=== PATIENT | female | born 1950 | race Caucasian/White ===

== ENCOUNTER 2021-03-15 14:13 | Outpatient (CLI) | payer MEDICARE ==
[~2021-03-15 14:13] MED LIST: Iopamidol 370 76% 100 ML VIAL ONE
[2021-03-15 14:55] LABS: Estimated GFR-MDRD - POC Greater than 90
== END 2021-03-15 14:14 | disposition home or self-care (01) ==
LOC: BICCT 14:13
PROVIDERS: ATTEND Internal Medicine Cardiovascular Disease
DX: I65.29 Occlusion and stenosis of unspecified carotid artery (principal); I70.8 Atherosclerosis of other arteries
CPT/HCPCS: 70498; 82565

== ENCOUNTER 2021-10-06 06:02 | Inpatient (IN) | payer MEDICARE ==
[2021-10-01 22:51] LABS: SARS-CoV-2 PCR by NAA Not Detected (NotDetected)
[2021-10-06] MEDS ORDERED: Bupivacaine PF 0.5% 30 ML VIAL ONE (07:51)
[2021-10-06] MEDS ORDERED: EPINEPHrine 1 MG/ML AMP ONE (07:51)
[2021-10-06] MEDS ORDERED: Dexamethasone 4 mg/ml Vial ONE (07:51)
[2021-10-06] MEDS ORDERED: ceFAZolin (BATCH) 2 GM/100 ML BAG ONE (08:42)
[2021-10-06] MEDS ORDERED: Midazolam HCl 2 mg/2 ml Vial ONE (09:25)
[2021-10-06] MEDS ORDERED: Fentanyl 250 MCG/5 ML VIAL ONE (09:37)
[2021-10-06] MEDS ORDERED: HYDROmorphone 2 MG/ML VIAL ONE (09:38)
[2021-10-06] MEDS ORDERED: PROPOFOL 200 MG/20 ML VIAL ONE (09:47)
[2021-10-06] MEDS ORDERED: Glycopyrrolate 0.2 MG/ML 5 ML SYRINGE ONE (09:47)
[2021-10-06] MEDS ORDERED: Dexamethasone 20 MG/5 ML VIAL ONE (09:47)
[2021-10-06] MEDS ORDERED: PHENYLEPHRINE-NS 100 MCG/ML 10 ML SYRINGE ONE (09:47)
[2021-10-06] MEDS ORDERED: Lidocaine 2% Jelly 5 ML TUBE ONE (09:47)
[2021-10-06] MEDS ORDERED: Rocuronium Bromide 10 MG/ML (10ML VIAL) ONE (09:47)
[2021-10-06] MEDS ORDERED: HYDROmorphone 2 MG/ML VIAL SLOW IVP PRN (11:39)
[2021-10-06] MEDS ORDERED: diphenhydrAMINE 50 MG/ML VIAL IM PRN (11:39)
[2021-10-06] MEDS ORDERED: Ondansetron HCl/PF 4 MG/2 ML Vial IVP PRN (11:39)
[2021-10-06] MEDS ORDERED: diphenhydrAMINE 50 MG/ML VIAL IVP PRN (11:39)
[2021-10-06] MEDS ORDERED: Promethazine HCl 25 MG/ML VIAL IM PRN ×3 (11:39→14:55)
[2021-10-06] MEDS ORDERED: HYDROmorphone 10 mg/100 ml CADD IVPB PRN (11:39)
[2021-10-06] MEDS ORDERED: Ondansetron PF 4 MG/2 ML Vial IVP PRN ×2 (11:39→14:55)
[2021-10-06] MEDS ORDERED: Zolpidem Tartrate 5 MG TAB PO PRN (11:39)
[2021-10-06] MEDS ORDERED: diphenhydrAMINE 25 MG CAP PO PRN (11:39)
[2021-10-06] MEDS ORDERED: Promethazine HCl 25 MG/ML VIAL IVPB PRN (11:39)
[2021-10-06] MEDS ORDERED: Naloxone HCl 0.4 mg/ml Vial IV PRN (11:39)
[2021-10-06] MEDS ORDERED: Communication Order-Pharmacy FS SCH (11:45)
[2021-10-06] MEDS ORDERED: HYDROmorphone 0.5 MG/0.5 ML SYRINGE ONE ×3 (11:56→15:22)
[2021-10-06] MEDS ORDERED: hydrALAZINE 20 MG/ML VIAL SLOW IVP PRN (14:55)
[2021-10-06] MEDS ORDERED: oxyCODONE/Acetaminophen 5 mg/325 mg Tablet PO PRN ×2 (15:18→15:20)
[2021-10-06 18:31] VITALS: BMI 24.7
[2021-10-06] MEDS: Mometasone/Formoterol 200/5 60 PUFF INH SCH (19:33)
[2021-10-06] MEDS: ceFAZolin (BATCH) 2 GM in Premix Bag 1 BAG IVPB SCH (20:05)
[2021-10-06] MEDS: Bupropion 100 MG SR TAB PO SCH (21:38)
[2021-10-07] MEDS: ceFAZolin (BATCH) 2 GM in Premix Bag 1 BAG IVPB SCH ×2 (01:54→09:24)
[2021-10-07 04:04] LABS: #Lymphocytes 1.6 thou/uL (1.20-3.40); #Monocytes 1.3 thou/uL (0.11-0.59); #Neutrophils 9.4 thou/uL (1.40-6.50); %Eosinophils 0.1 % (0.0-10.0); %Monocytes 10.7 % (0.0-10.0); %Neutrophils 76.1 % (42.0-75.0); Hemoglobin 12.7 g/dL (12.0-16.0); Mean Corpuscular HGB CONC 32.6 g/dL (32.0-36.0); Mean Corpuscular Hemoglobin 32.9 pg (27.0-31.0); Platelet Count 264 thou/uL (130-400); Red Blood Cell (RBC) Count 3.85 mill/uL (4.20-5.40); White Blood Cell (WBC) Count 12.4 thou/uL (4.8-10.8)
[2021-10-07 04:22] LABS: Anion Gap 11 mmol/L (10-20); BUN (Urea Nitrogen) 12 mg/dL (9.8-20.1); Calc. Creatinine Clearance 76 mL/min (70-130); Calcium 8.7 mg/dL (7.8-10.44); Carbon Dioxide 26 mmol/L (23-31); Chloride 106 mmol/L (98-107); Glucose 131 mg/dL (83-110); Potassium 4.4 mmol/L (3.5-5.1); Sodium 139 mmol/L (136-145)
[2021-10-07] MEDS: Mometasone/Formoterol 200/5 60 PUFF INH SCH ×2 (08:13→18:18)
[2021-10-07] MEDS: Multivit, Therapeutic 1 TAB PO SCH (08:54)
[2021-10-07] MEDS: Potassium Chloride 20 MEQ TAB PO SCH (08:54)
[2021-10-07] MEDS: Fish Oil 1,000 MG CAP PO SCH (08:54)
[2021-10-07] MEDS: Aspirin 81 mg Enteric Coated Tablet PO SCH (08:54)
[2021-10-07] MEDS: Montelukast Sodium 10 mg Tablet PO SCH (08:54)
[2021-10-07] MEDS: Atorvastatin Calcium 40 MG TAB PO SCH (08:55)
[2021-10-07] MEDS: Losartan 25 MG TAB PO SCH (08:55)
[2021-10-07] MEDS: Bupropion 100 MG SR TAB PO SCH ×2 (09:36→20:20)
[2021-10-07] MEDS: Acetaminophen 325 MG TAB PO PRN (17:54)
[2021-10-08] MEDS: Mometasone/Formoterol 200/5 60 PUFF INH SCH ×2 (07:30→19:14)
[2021-10-08] MEDS ORDERED: Non-Formulary Item 1 EACH (Tiotropium [Spiriva Handihaler] 18 MCG Box) INH SCH (09:00)
[2021-10-08] MEDS ORDERED: Non-Formulary Item 1 EACH (Fluticasone/Salmeterol [Wixela 250-50 Inhub] 1 EACH Blst.W.Dev INH SCH (09:00)
[2021-10-08] MEDS ORDERED: Non-Formulary Item 1 EACH (Fluticasone/Umeclidin/Vilanter [Trelegy Ellipta 200-62.5-25] 1 INH SCH (09:00)
[2021-10-08] MEDS: Montelukast Sodium 10 mg Tablet PO SCH (09:34)
[2021-10-08] MEDS: Multivit, Therapeutic 1 TAB PO SCH (09:34)
[2021-10-08] MEDS: Potassium Chloride 20 MEQ TAB PO SCH (09:34)
[2021-10-08] MEDS: Furosemide 20 MG TAB PO SCH (09:34)
[2021-10-08] MEDS: Atorvastatin Calcium 40 MG TAB PO SCH (09:34)
[2021-10-08] MEDS: Losartan 25 MG TAB PO SCH (09:35)
[2021-10-08] MEDS: Clopidogrel Bisulfate 75 MG TAB PO SCH (09:35)
[2021-10-08] MEDS: Rivaroxaban 10 MG TAB PO SCH (09:35)
[2021-10-08] MEDS: Aspirin 81 mg Enteric Coated Tablet PO SCH (09:35)
[2021-10-08] MEDS: Fish Oil 1,000 MG CAP PO SCH (09:35)
[2021-10-08] MEDS: Bupropion 100 MG SR TAB PO SCH ×2 (09:36→21:04)
[2021-10-08] MEDS ORDERED: guaiFENesin ER 600 MG TAB PO SCH (11:30)
[2021-10-08] MEDS: guaiFENesin ER 600 MG TAB PO SCH (21:05)
[2021-10-09] MEDS: Mometasone/Formoterol 200/5 60 PUFF INH SCH ×2 (07:05→18:43)
[2021-10-09] MEDS: guaiFENesin ER 600 MG TAB PO SCH ×2 (10:21→20:44)
[2021-10-09] MEDS: Potassium Chloride 20 MEQ TAB PO SCH (10:21)
[2021-10-09] MEDS: Losartan 25 MG TAB PO SCH (10:22)
[2021-10-09] MEDS: Montelukast Sodium 10 mg Tablet PO SCH (10:22)
[2021-10-09] MEDS: Furosemide 20 MG TAB PO SCH (10:22)
[2021-10-09] MEDS: Clopidogrel Bisulfate 75 MG TAB PO SCH (10:22)
[2021-10-09] MEDS: Atorvastatin Calcium 40 MG TAB PO SCH (10:22)
[2021-10-09] MEDS: Multivit, Therapeutic 1 TAB PO SCH (10:23)
[2021-10-09] MEDS: Fish Oil 1,000 MG CAP PO SCH (10:23)
[2021-10-09] MEDS: Rivaroxaban 10 MG TAB PO SCH (10:23)
[2021-10-09] MEDS: Aspirin 81 mg Enteric Coated Tablet PO SCH (10:23)
[2021-10-09] MEDS: Bupropion 100 MG SR TAB PO SCH ×2 (10:30→21:52)
[2021-10-09] MEDS: Acetaminophen 325 MG TAB PO PRN (13:31)
[2021-10-10] MEDS: Mometasone/Formoterol 200/5 60 PUFF INH SCH ×2 (06:58→18:44)
[2021-10-10] MEDS ORDERED: Fentanyl 100 MCG/2 ML VIAL SLOW IVP PRN (08:33)
[2021-10-10] MEDS ORDERED: HYDROcodone/Acetaminophen 5/325 mg Tablet PO PRN (08:33)
[2021-10-10] MEDS: Fish Oil 1,000 MG CAP PO SCH (10:13)
[2021-10-10] MEDS: Bupropion 100 MG SR TAB PO SCH ×2 (10:13→21:20)
[2021-10-10] MEDS: Aspirin 81 mg Enteric Coated Tablet PO SCH (10:14)
[2021-10-10] MEDS: Atorvastatin Calcium 40 MG TAB PO SCH (10:14)
[2021-10-10] MEDS: Losartan 25 MG TAB PO SCH (10:14)
[2021-10-10] MEDS: Furosemide 20 MG TAB PO SCH (10:14)
[2021-10-10] MEDS: Rivaroxaban 10 MG TAB PO SCH (10:14)
[2021-10-10] MEDS: guaiFENesin ER 600 MG TAB PO SCH ×2 (10:14→21:20)
[2021-10-10] MEDS: Montelukast Sodium 10 mg Tablet PO SCH (10:15)
[2021-10-10] MEDS ORDERED: Budesonide 0.5 MG/2 ML NEB NEB SCH (10:15)
[2021-10-10] MEDS: Potassium Chloride 20 MEQ TAB PO SCH (10:15)
[2021-10-10] MEDS: Multivit, Therapeutic 1 TAB PO SCH (10:15)
[2021-10-10] MEDS: Clopidogrel Bisulfate 75 MG TAB PO SCH (10:15)
[2021-10-10] MEDS ORDERED: Polyethylene Glycol 3350 17 GM Packet PO PRN (10:37)
[2021-10-10] MEDS: HYDROcodone/Acetaminophen 5/325 mg Tablet PO PRN ×2 (15:03→21:25)
[2021-10-10] MEDS: Fentanyl 100 MCG/2 ML VIAL SLOW IVP PRN (18:08)
[2021-10-10] MEDS: Budesonide 0.5 MG/2 ML NEB NEB SCH (18:28)
[2021-10-11] MEDS: Fentanyl 100 MCG/2 ML VIAL SLOW IVP PRN (00:20)
[2021-10-11] MEDS: Mometasone/Formoterol 200/5 60 PUFF INH SCH ×2 (07:19→18:28)
[2021-10-11] MEDS: Budesonide 0.5 MG/2 ML NEB NEB SCH ×2 (07:21→18:27)
[2021-10-11] MEDS: guaiFENesin ER 600 MG TAB PO SCH ×2 (08:32→20:17)
[2021-10-11] MEDS: Fish Oil 1,000 MG CAP PO SCH (08:32)
[2021-10-11] MEDS: Aspirin 81 mg Enteric Coated Tablet PO SCH (08:32)
[2021-10-11] MEDS: Atorvastatin Calcium 40 MG TAB PO SCH (08:32)
[2021-10-11] MEDS: Multivit, Therapeutic 1 TAB PO SCH (08:32)
[2021-10-11] MEDS: Potassium Chloride 20 MEQ TAB PO SCH (08:32)
[2021-10-11] MEDS: Montelukast Sodium 10 mg Tablet PO SCH (08:33)
[2021-10-11] MEDS: HYDROcodone/Acetaminophen 5/325 mg Tablet PO PRN ×4 (08:33→21:06)
[2021-10-11] MEDS: Losartan 25 MG TAB PO SCH (08:33)
[2021-10-11] MEDS: Clopidogrel Bisulfate 75 MG TAB PO SCH (08:34)
[2021-10-11] MEDS: Furosemide 20 MG TAB PO SCH (08:34)
[2021-10-11] MEDS: Rivaroxaban 10 MG TAB PO SCH (08:34)
[2021-10-11] MEDS: Bupropion 100 MG SR TAB PO SCH ×2 (10:19→20:17)
[2021-10-11] MEDS ORDERED: Oxymetazoline HCl 0.05% (30 ML BOT) NS SCH (18:30)
[2021-10-11] MEDS ORDERED: Bisacodyl 5 MG TAB PO PRN (20:06)
[2021-10-11] MEDS ORDERED: Polyethylene Glycol 3350 17 GM Packet PO SCH (20:15)
[2021-10-12] MEDS: Fentanyl 100 MCG/2 ML VIAL SLOW IVP PRN
[2021-10-12] MEDS: HYDROcodone/Acetaminophen 5/325 mg Tablet PO PRN ×5 (02:15→20:03)
[2021-10-12] MEDS: Mometasone/Formoterol 200/5 60 PUFF INH SCH ×2 (06:59→19:07)
[2021-10-12] MEDS: Budesonide 0.5 MG/2 ML NEB NEB SCH ×2 (07:00→18:58)
[2021-10-12] MEDS: Polyethylene Glycol 3350 17 GM Packet PO SCH (11:22)
[2021-10-12] MEDS: Losartan 25 MG TAB PO SCH (11:22)
[2021-10-12] MEDS: guaiFENesin ER 600 MG TAB PO SCH ×2 (11:22→20:07)
[2021-10-12] MEDS: Fish Oil 1,000 MG CAP PO SCH (11:22)
[2021-10-12] MEDS: Potassium Chloride 20 MEQ TAB PO SCH (11:23)
[2021-10-12] MEDS: Multivit, Therapeutic 1 TAB PO SCH (11:23)
[2021-10-12] MEDS: Aspirin 81 mg Enteric Coated Tablet PO SCH (11:23)
[2021-10-12] MEDS: Furosemide 20 MG TAB PO SCH (11:23)
[2021-10-12] MEDS: Montelukast Sodium 10 mg Tablet PO SCH (11:23)
[2021-10-12] MEDS: Atorvastatin Calcium 40 MG TAB PO SCH (11:23)
[2021-10-12] MEDS: Bupropion 100 MG SR TAB PO SCH ×2 (11:25→20:07)
[2021-10-13] MEDS: HYDROcodone/Acetaminophen 5/325 mg Tablet PO PRN ×4 (00:09→13:07)
[2021-10-13] MEDS: Mometasone/Formoterol 200/5 60 PUFF INH SCH (07:09)
[2021-10-13] MEDS: Budesonide 0.5 MG/2 ML NEB NEB SCH (07:09)
[2021-10-13] MEDS: Montelukast Sodium 10 mg Tablet PO SCH (08:36)
[2021-10-13] MEDS: Multivit, Therapeutic 1 TAB PO SCH (08:36)
[2021-10-13] MEDS: Potassium Chloride 20 MEQ TAB PO SCH (08:37)
[2021-10-13] MEDS: Furosemide 20 MG TAB PO SCH (08:37)
[2021-10-13] MEDS: Aspirin 81 mg Enteric Coated Tablet PO SCH (08:37)
[2021-10-13] MEDS: guaiFENesin ER 600 MG TAB PO SCH (08:37)
[2021-10-13] MEDS: Fish Oil 1,000 MG CAP PO SCH (08:37)
[2021-10-13] MEDS: Bupropion 100 MG SR TAB PO SCH (08:38)
[2021-10-13] MEDS: Atorvastatin Calcium 40 MG TAB PO SCH (08:38)
[2021-10-13] MEDS: Losartan 25 MG TAB PO SCH (08:41)
[2021-10-13] MEDS: Polyethylene Glycol 3350 17 GM Packet PO SCH (08:42)
[2021-10-13 12:18] VITALS: BP 98/55; TEMP 97.8
== END 2021-10-13 15:05 | disposition home or self-care (01) | DRG 165 ==
LOC: SDC 06:02 → MERGE 09:15 → CCU 11:30 → 2NO 10-08 19:12
PROVIDERS: ADMIT Thoracic Surgery (Cardiothoracic Vascular Surgery); ATTEND Thoracic Surgery (Cardiothoracic Vascular Surgery)
PROC: 0BBD0ZZ Excision of Right Middle Lung Lobe, Open Approach (ICD-10-PCS; principal; 2021-10-06)
DX: C34.2 Malignant neoplasm of middle lobe, bronchus or lung (principal); Z20.822 Contact with and (suspected) exposure to COVID-19; E03.9 Hypothyroidism, unspecified; M19.90 Unspecified osteoarthritis, unspecified site; J44.9 Chronic obstructive pulmonary disease, unspecified; I73.9 Peripheral vascular disease, unspecified; F17.290 Nicotine dependence, other tobacco product, uncomplicated; I65.23 Occlusion and stenosis of bilateral carotid arteries; R04.0 Epistaxis; Z85.038 Personal history of other malignant neoplasm of large intestine; Z95.5 Presence of coronary angioplasty implant and graft; Z83.3 Family history of diabetes mellitus; Z80.9 Family history of malignant neoplasm, unspecified; Z79.01 Long term (current) use of anticoagulants; Z79.899 Other long term (current) drug therapy; Z79.890 Hormone replacement therapy; Z79.82 Long term (current) use of aspirin; Z79.51 Long term (current) use of inhaled steroids
CPT/HCPCS: 36415; 71045; 80048; 85025; 86850; 86900; 86901; 88307; 88341; 88342; 94640; C1776; C1889; J0171; J0690; J1100; J1170; J2250; J2704; J3010; J7620; J7626; S0020; U0003; U0005

== ENCOUNTER 2021-11-03 12:09 | Outpatient (CLI) | payer MEDICARE | END 2021-11-03 12:10 | disposition home or self-care (01) | LOC: RAD 12:09 | PROVIDERS: ATTEND Thoracic Surgery (Cardiothoracic Vascular Surgery) | DX: J44.9 Chronic obstructive pulmonary disease, unspecified (principal); R91.8 Other nonspecific abnormal finding of lung field; J90 Pleural effusion, not elsewhere classified | CPT/HCPCS: 71046 ==

== ENCOUNTER 2021-12-29 13:18 | Outpatient (CLI) | payer MEDICARE | END 2021-12-29 13:19 | disposition home or self-care (01) | LOC: MRI 13:18 | PROVIDERS: ATTEND Family Medicine | DX: M47.26 Other spondylosis with radiculopathy, lumbar region (principal); M47.815 Spondylosis without myelopathy or radiculopathy, thoracolumbar region; M47.814 Spondylosis without myelopathy or radiculopathy, thoracic region; M47.817 Spondylosis without myelopathy or radiculopathy, lumbosacral region | CPT/HCPCS: 72148 ==

== ENCOUNTER 2022-01-28 12:23 | Inpatient (IN) | payer OTHER, MEDICARE ==
[2022-01-28 13:07] LABS: #Lymphocytes 2.8 thou/uL (1.20-3.40); #Monocytes 0.7 thou/uL (0.11-0.59); #Neutrophils 7.4 thou/uL (1.40-6.50); %Basophils 0.3 % (0.0-1.0); %Eosinophils 0.4 % (0.0-10.0); %Lymphocytes 25.3 % (21.0-51.0); %Monocytes 6.8 % (0.0-10.0); %Neutrophils 67.2 % (42.0-75.0); Hemoglobin 12.4 g/dL (12.0-16.0); Mean Corpuscular HGB CONC 33.4 g/dL (32.0-36.0); Mean Corpuscular Hemoglobin 30.5 pg (27.0-31.0); Mean Corpuscular Volume 91.3 fL (78.0-98.0); Mean Platelet Volume 7.3 fL (7.4-10.4); Platelet Count 262 thou/uL (130-400); RBC Distribution Width 13.7 % (11.5-14.5); Red Blood Cell (RBC) Count 4.07 mill/uL (4.20-5.40)
[2022-01-28 13:23] LABS: PTT 31.5 sec (22.9-36.1); Prothrombin Time 12.9 sec (12.0-14.7)
[2022-01-28 13:31] LABS: ALT (SGPT) 24 U/L (8-55); AST (SGOT) 26 U/L (5-34); Albumin 3.9 g/dL (3.4-4.8); Alkaline Phosphatase 80 U/L (40-110); Anion Gap 13 mmol/L (10-20); BUN (Urea Nitrogen) 12 mg/dL (9.8-20.1); Bilirubin, Total 0.5 mg/dL (0.2-1.2); CK (CPK) 191 U/L (29-168); Calc. Creatinine Clearance 0 mL/min (70-130); Calcium 8.9 mg/dL (7.8-10.44); Carbon Dioxide 25 mmol/L (23-31); Chloride 105 mmol/L (98-107); Estimated GFR 93; Globulin 2.6 g/dL (2.4-3.5); Glucose 89 mg/dL (83-110); Potassium 3.7 mmol/L (3.5-5.1); Protein, Total 6.5 g/dL (5.8-8.1); Sodium 139 mmol/L (136-145)
[2022-01-28] MEDS ORDERED: Lidocaine 1% MPF 2 ML VIAL ONE (15:04)
[2022-01-28] MEDS ORDERED: Boostrix 0.5 ML (Tdap) VIAL ONE (15:05)
[2022-01-28] MEDS ORDERED: Iopamidol-370 76% 500 ML 1 ML ONE (15:10)
[2022-01-28] MEDS ORDERED: Fentanyl 100 MCG/2 ML VIAL ONE ×2 (15:43→16:31)
[2022-01-28] MEDS ORDERED: hydrALAZINE 20 MG/ML VIAL SLOW IVP PRN (15:45)
[2022-01-28] MEDS ORDERED: Dextrose 5% in Water 1,000 ML IV PRN (15:45)
[2022-01-28] MEDS ORDERED: Ondansetron PF 4 MG/2 ML Vial IVP PRN (15:45)
[2022-01-28] MEDS ORDERED: Dextrose 50% Abboject 50 ML SYRINGE SLOW IVP PRN (15:45)
[2022-01-28] MEDS ORDERED: HUMAN PROTHROMBIN COMPLX IV SCH (16:00)
[2022-01-28] MEDS ORDERED: [UNRECOGNIZED DRUG - OTHER] IV SCH (16:00)
[2022-01-28] MEDS ORDERED: HUM PROTHROMBIN CPLX IV SCH (16:00)
[2022-01-28] MEDS ORDERED: CEFAZOLIN 1 GM VIAL ONE (16:31)
[2022-01-28 18:22] LABS: Hemoglobin 11.5 g/dL (12.0-16.0); Platelet Count 211 thou/uL (130-400)
[2022-01-28] MEDS ORDERED: Famotidine/PF 20 mg/2ml Vial SLOW IVP SCH (21:00)
[2022-01-28] MEDS: Dexamethasone 4 mg/ml Vial SLOW IVP SCH (21:02)
[2022-01-28] MEDS: Senokot S 8.6-50 MG TAB PO SCH (21:03)
[2022-01-28] MEDS: Fentanyl 100 MCG/2 ML VIAL SLOW IVP PRN ×2 (21:03→23:32)
[2022-01-28] MEDS: Acetaminophen 500 MG TAB PO SCH ×2 (21:42→23:31)
[2022-01-28] MEDS ORDERED: Albuterol 200 PUFF (6.7GM INHALER) INH PRN (21:53)
[2022-01-28 22:15] VITALS: BMI 23.6
[2022-01-29 03:39] LABS: #Lymphocytes 1.3 thou/uL (1.20-3.40); #Monocytes 0.1 thou/uL (0.11-0.59); %Eosinophils 0.1 % (0.0-10.0); %Lymphocytes 23.5 % (21.0-51.0); %Monocytes 2.6 % (0.0-10.0); %Neutrophils 73.8 % (42.0-75.0); Hemoglobin 12.4 g/dL (12.0-16.0); Mean Corpuscular HGB CONC 33.6 g/dL (32.0-36.0); Mean Corpuscular Hemoglobin 31.1 pg (27.0-31.0); Mean Corpuscular Volume 92.4 fL (78.0-98.0); Mean Platelet Volume 7.6 fL (7.4-10.4); Platelet Count 210 thou/uL (130-400); RBC Distribution Width 13.9 % (11.5-14.5); White Blood Cell (WBC) Count 5.4 thou/uL (4.8-10.8)
[2022-01-29 03:58] LABS: Anion Gap 12 mmol/L (10-20); BUN (Urea Nitrogen) 9 mg/dL (9.8-20.1); Calc. Creatinine Clearance 76 mL/min (70-130); Calcium 8.7 mg/dL (7.8-10.44); Carbon Dioxide 21 mmol/L (23-31); Chloride 109 mmol/L (98-107); Estimated GFR 93; Glucose 144 mg/dL (83-110); Magnesium 1.6 mg/dL (1.6-2.6); Phosphorus 3.5 mg/dL (2.3-4.7); Potassium 4.4 mmol/L (3.5-5.1); Sodium 138 mmol/L (136-145)
[2022-01-29] MEDS: Dexamethasone 4 mg/ml Vial SLOW IVP SCH ×2 (05:02→11:53)
[2022-01-29] MEDS: Acetaminophen 500 MG TAB PO SCH (05:02)
[2022-01-29] MEDS: Mometasone 200 MCG/Formoterol 5 MCG 120 PUFF INHALER INH SCH ×2 (07:37→19:07)
[2022-01-29] MEDS: Venlafaxine XR 37.5 MG CAP PO SCH (08:33)
[2022-01-29] MEDS: Atorvastatin Calcium 40 MG TAB PO SCH (08:33)
[2022-01-29] MEDS: Senokot S 8.6-50 MG TAB PO SCH ×2 (08:33→20:53)
[2022-01-29] MEDS: Polyethylene Glycol 3350 17 GM Packet PO SCH (08:34)
[2022-01-29] MEDS: Bupropion 100 MG SR TAB PO SCH (08:34)
[2022-01-29] MEDS ORDERED: Non-Formulary Item 1 EACH (Tiotropium [Spiriva Handihaler] 18 MCG Box) INH SCH (09:00)
[2022-01-29] MEDS ORDERED: Losartan 25 MG TAB PO SCH (09:45)
[2022-01-29] MEDS: Acetaminophen 325 MG TAB PO SCH ×3 (11:53→23:49)
[2022-01-29] MEDS: Fentanyl 100 MCG/2 ML VIAL SLOW IVP PRN (18:20)
[2022-01-29] MEDS: traZODone HCl 50 MG TAB PO SCH (20:51)
[2022-01-29] MEDS: hydrOXYzine 25 MG TAB PO SCH (20:52)
[2022-01-30] MEDS: Acetaminophen/Codeine 30-300mg Tablet PO PRN ×3 (03:06→20:46)
[2022-01-30] MEDS: Acetaminophen 325 MG TAB PO SCH ×3 (05:32→16:56)
[2022-01-30] MEDS: Mometasone 200 MCG/Formoterol 5 MCG 120 PUFF INHALER INH SCH ×2 (07:05→19:46)
[2022-01-30] MEDS ORDERED: Magnesium Sulfate 3 GM in Sodium Chloride 0.9% 100 ML IVPB SCH (08:00)
[2022-01-30] MEDS ORDERED: Losartan 25 MG TAB PO SCH (09:00)
[2022-01-30] MEDS ORDERED: Magnesium 2 GM/50 ML(in water) 3 GM in Premix Bag 1 BAG IVPB SCH (09:00)
[2022-01-30] MEDS: Venlafaxine XR 37.5 MG CAP PO SCH (09:11)
[2022-01-30] MEDS: Atorvastatin Calcium 40 MG TAB PO SCH (09:13)
[2022-01-30] MEDS: Senokot S 8.6-50 MG TAB PO SCH ×2 (09:14→20:41)
[2022-01-30] MEDS: Bupropion 100 MG SR TAB PO SCH (09:14)
[2022-01-30] MEDS: Polyethylene Glycol 3350 17 GM Packet PO SCH (09:15)
[2022-01-30] MEDS: Aspirin 81 mg Enteric Coated Tablet PO SCH (09:15)
[2022-01-30 11:28] LABS: #Lymphocytes 3.2 thou/uL (1.20-3.40); #Monocytes 0.8 thou/uL (0.11-0.59); #Neutrophils 6.1 thou/uL (1.40-6.50); %Basophils 0.1 % (0.0-1.0); %Eosinophils 0.3 % (0.0-10.0); %Lymphocytes 31.4 % (21.0-51.0); %Monocytes 7.5 % (0.0-10.0); %Neutrophils 60.6 % (42.0-75.0); Mean Corpuscular HGB CONC 33.5 g/dL (32.0-36.0); Mean Corpuscular Hemoglobin 31.6 pg (27.0-31.0); Mean Corpuscular Volume 94.2 fL (78.0-98.0); Mean Platelet Volume 7.9 fL (7.4-10.4); Platelet Count 202 thou/uL (130-400); Red Blood Cell (RBC) Count 3.79 mill/uL (4.20-5.40); White Blood Cell (WBC) Count 10.1 thou/uL (4.8-10.8)
[2022-01-30 11:51] LABS: Anion Gap 13 mmol/L (10-20); BUN (Urea Nitrogen) 11 mg/dL (9.8-20.1); Calc. Creatinine Clearance 90 mL/min (70-130); Calcium 8.4 mg/dL (7.8-10.44); Carbon Dioxide 19 mmol/L (23-31); Chloride 112 mmol/L (98-107); Estimated GFR 96; Glucose 99 mg/dL (83-110); Magnesium 2.3 mg/dL (1.6-2.6); Phosphorus 2.5 mg/dL (2.3-4.7); Potassium 3.6 mmol/L (3.5-5.1); Sodium 140 mmol/L (136-145)
[2022-01-30] MEDS ORDERED: Hydrocortisone Sod Succ/PF 100 mg/2 ml Vial IVP SCH ×3 (13:30→22:00)
[2022-01-30] MEDS ORDERED: Lactated Ringer's 500 ML IV SCH ×2 (16:00→17:30)
[2022-01-30] MEDS ORDERED: Ketorolac Tromethamine 30 MG/ML VIAL IVP SCH (18:00)
[2022-01-30] MEDS: traZODone HCl 50 MG TAB PO SCH (20:38)
[2022-01-30] MEDS: hydrOXYzine 25 MG TAB PO SCH (20:38)
[2022-01-31] MEDS: Hydrocortisone Sod Succ/PF 100 mg/2 ml Vial IVP SCH ×3 (00:37→13:05)
[2022-01-31] MEDS: Acetaminophen 325 MG TAB PO SCH ×4 (00:38→17:36)
[2022-01-31] MEDS: Mometasone 200 MCG/Formoterol 5 MCG 120 PUFF INHALER INH SCH ×2 (06:32→19:16)
[2022-01-31 07:25] LABS: #Lymphocytes 1.7 thou/uL (1.20-3.40); #Monocytes 0.5 thou/uL (0.11-0.59); #Neutrophils 7.4 thou/uL (1.40-6.50); %Basophils 0.4 % (0.0-1.0); %Eosinophils 0.1 % (0.0-10.0); %Lymphocytes 17.9 % (21.0-51.0); %Monocytes 5.3 % (0.0-10.0); %Neutrophils 76.4 % (42.0-75.0); Hemoglobin 11.4 g/dL (12.0-16.0); Mean Corpuscular HGB CONC 32.8 g/dL (32.0-36.0); Mean Corpuscular Hemoglobin 30.9 pg (27.0-31.0); Mean Corpuscular Volume 94.1 fL (78.0-98.0); Platelet Count 216 thou/uL (130-400); Red Blood Cell (RBC) Count 3.69 mill/uL (4.20-5.40); White Blood Cell (WBC) Count 9.7 thou/uL (4.8-10.8)
[2022-01-31 07:42] LABS: Anion Gap 12 mmol/L (10-20); BUN (Urea Nitrogen) 12 mg/dL (9.8-20.1); Calc. Creatinine Clearance 98 mL/min (70-130); Carbon Dioxide 22 mmol/L (23-31); Chloride 112 mmol/L (98-107); Estimated GFR 96; Glucose 144 mg/dL (83-110); Magnesium 1.6 mg/dL (1.6-2.6); Phosphorus 2.9 mg/dL (2.3-4.7); Potassium 3.8 mmol/L (3.5-5.1); Sodium 142 mmol/L (136-145)
[2022-01-31] MEDS: Venlafaxine XR 37.5 MG CAP PO SCH (08:44)
[2022-01-31] MEDS: Atorvastatin Calcium 40 MG TAB PO SCH (08:44)
[2022-01-31] MEDS: Bupropion 100 MG SR TAB PO SCH (08:44)
[2022-01-31] MEDS: Aspirin 81 mg Enteric Coated Tablet PO SCH (08:44)
[2022-01-31] MEDS: Polyethylene Glycol 3350 17 GM Packet PO SCH (08:45)
[2022-01-31] MEDS: Losartan 25 MG TAB PO SCH (08:45)
[2022-01-31] MEDS: Senokot S 8.6-50 MG TAB PO SCH ×2 (08:45→20:23)
[2022-01-31] MEDS: Acetaminophen/Codeine 30-300mg Tablet PO PRN (20:22)
[2022-01-31] MEDS: hydrOXYzine 25 MG TAB PO SCH (20:22)
[2022-02-01] MEDS: Acetaminophen 325 MG TAB PO SCH ×5 (00:14→23:21)
[2022-02-01] MEDS: Acetaminophen/Codeine 30-300mg Tablet PO PRN ×4 (00:19→23:26)
[2022-02-01] MEDS: Mometasone 200 MCG/Formoterol 5 MCG 120 PUFF INHALER INH SCH ×2 (07:16→18:34)
[2022-02-01] MEDS: Senokot S 8.6-50 MG TAB PO SCH ×2 (08:11→19:48)
[2022-02-01] MEDS: Venlafaxine XR 37.5 MG CAP PO SCH (08:11)
[2022-02-01] MEDS: Losartan 25 MG TAB PO SCH (08:12)
[2022-02-01] MEDS: Aspirin 81 mg Enteric Coated Tablet PO SCH (08:12)
[2022-02-01] MEDS: Bupropion 100 MG SR TAB PO SCH (08:12)
[2022-02-01] MEDS: Polyethylene Glycol 3350 17 GM Packet PO SCH (08:13)
[2022-02-01] MEDS: Atorvastatin Calcium 40 MG TAB PO SCH (08:15)
[2022-02-01] MEDS ORDERED: Nitroglycerin 0.4 MG TAB (25 Tab Bottle) ONE (10:52)
[2022-02-01] MEDS ORDERED: Sodium Chloride 0.9% 500 ML IV SCH (13:45)
[2022-02-01] MEDS: hydrOXYzine 25 MG TAB PO SCH (19:48)
[2022-02-02] MEDS: Acetaminophen 325 MG TAB PO SCH ×3 (06:03→18:12)
[2022-02-02] MEDS: Acetaminophen/Codeine 30-300mg Tablet PO PRN (06:03)
[2022-02-02] MEDS: Mometasone 200 MCG/Formoterol 5 MCG 120 PUFF INHALER INH SCH ×2 (07:41→18:29)
[2022-02-02] MEDS: Venlafaxine XR 37.5 MG CAP PO SCH (09:17)
[2022-02-02] MEDS: Aspirin 81 mg Enteric Coated Tablet PO SCH (09:17)
[2022-02-02] MEDS: Senokot S 8.6-50 MG TAB PO SCH ×2 (09:17→20:54)
[2022-02-02] MEDS: Atorvastatin Calcium 40 MG TAB PO SCH (09:17)
[2022-02-02] MEDS: Polyethylene Glycol 3350 17 GM Packet PO SCH (09:17)
[2022-02-02] MEDS: Bupropion 100 MG SR TAB PO SCH (09:17)
[2022-02-02] MEDS ORDERED: Bisacodyl 10 MG SUPP PR PRN (10:25)
[2022-02-02] MEDS: hydrOXYzine 25 MG TAB PO SCH (20:48)
[2022-02-03] MEDS: Acetaminophen 325 MG TAB PO SCH ×3 (00:04→12:21)
[2022-02-03] MEDS: Acetaminophen/Codeine 30-300mg Tablet PO PRN ×2 (02:23→09:59)
[2022-02-03] MEDS: Mometasone 200 MCG/Formoterol 5 MCG 120 PUFF INHALER INH SCH (08:01)
[2022-02-03] MEDS: Venlafaxine XR 37.5 MG CAP PO SCH (09:51)
[2022-02-03] MEDS: Bupropion 100 MG SR TAB PO SCH (09:51)
[2022-02-03] MEDS: Aspirin 81 mg Enteric Coated Tablet PO SCH (09:51)
[2022-02-03] MEDS: Atorvastatin Calcium 40 MG TAB PO SCH (09:51)
[2022-02-03] MEDS: Senokot S 8.6-50 MG TAB PO SCH (09:52)
[2022-02-03] MEDS: Polyethylene Glycol 3350 17 GM Packet PO SCH (09:52)
[2022-02-03 12:54] VITALS: BP 96/61; TEMP 98.2
== END 2022-02-03 14:40 | disposition home health service (06) | DRG 605 ==
LOC: ERS 12:23 → IMCU/EMU 15:45 → SURG A 01-29 14:12
PROVIDERS: ADMIT Student in an Organized Health Care Education/Training Program; ATTEND Surgery
PROC: 0JQK3ZZ Repair Left Hand Subcutaneous Tissue and Fascia, Percutaneous Approach (ICD-10-PCS; principal; 2022-01-28)
PROC: 30233N1 Transfusion of Nonautologous Red Blood Cells into Peripheral Vein, Percutaneous Approach (ICD-10-PCS; 2022-01-28)
DX: S01.01XA Laceration without foreign body of scalp, initial encounter (principal); D62 Acute posthemorrhagic anemia; E27.40 Unspecified adrenocortical insufficiency; S00.03XA Contusion of scalp, initial encounter; Z20.822 Contact with and (suspected) exposure to COVID-19; E78.5 Hyperlipidemia, unspecified; I10 Essential (primary) hypertension; J44.9 Chronic obstructive pulmonary disease, unspecified; F41.9 Anxiety disorder, unspecified; F32.A Depression, unspecified; F17.210 Nicotine dependence, cigarettes, uncomplicated; E03.9 Hypothyroidism, unspecified; I25.10 Atherosclerotic heart disease of native coronary artery without angina pectoris; H05.221 Edema of right orbit; S61.215A Laceration without foreign body of left ring finger without damage to nail, initial encounter; W01.0XXA Fall on same level from slipping, tripping and stumbling without subsequent striking against object, initial encounter; E11.51 Type 2 diabetes mellitus with diabetic peripheral angiopathy without gangrene; Z95.5 Presence of coronary angioplasty implant and graft; Z90.49 Acquired absence of other specified parts of digestive tract; I25.2 Old myocardial infarction; Z98.890 Other specified postprocedural states; Z79.01 Long term (current) use of anticoagulants; Z85.038 Personal history of other malignant neoplasm of large intestine; Z85.118 Personal history of other malignant neoplasm of bronchus and lung; Z79.82 Long term (current) use of aspirin; Z79.899 Other long term (current) drug therapy
CPT/HCPCS: 12001; 36415; 36416; 36430; 70450; 70486; 71260; 72125; 74177; 80048; 80053; 82533; 82550; 83735; 84100; 84484; 85025; 85610; 85730; 86850; 86900; 86901; 90471; 90715; 93005; 93010; 93306; 94640; 94664; 96361; 96365; 96375; 96376; G0390; J0690; J1100; J1720; J1885; J3010; J3475; J3490; J7030; J7120; J7168; J7620; P9016; Q9967; S0028; U0003; U0005

== ENCOUNTER 2022-03-01 13:58 | Outpatient (CLI) | payer MEDICARE | END 2022-03-01 13:59 | disposition home or self-care (01) | LOC: RAD 13:58 | PROVIDERS: ATTEND Thoracic Surgery (Cardiothoracic Vascular Surgery) | DX: J44.9 Chronic obstructive pulmonary disease, unspecified (principal); R91.8 Other nonspecific abnormal finding of lung field | CPT/HCPCS: 71046 ==

== ENCOUNTER 2022-03-14 19:21 | Inpatient (IN) | payer MEDICARE ==
[2022-03-14] MEDS ORDERED: Naloxone HCl 0.4 mg/ml Vial ONE (19:53)
[2022-03-14] MEDS ORDERED: Cefepime 2 GM VIAL ONE (19:55)
[2022-03-14] MEDS ORDERED: Rocuronium Bromide 10 MG/ML (10ML VIAL) ONE (19:57)
[2022-03-14] MEDS ORDERED: Propofol 1,000 MG/100 ML VIAL IV ONE (20:09)
[2022-03-14] MEDS ORDERED: Fentanyl CADD 100 ML IV SCH (20:15)
[2022-03-14 20:21] LABS: #Lymphocytes 1.2 thou/uL (1.20-3.40); #Monocytes 1.3 thou/uL (0.11-0.59); #Neutrophils 12.3 thou/uL (1.40-6.50); %Basophils 0.1 % (0.0-1.0); %Eosinophils 0.2 % (0.0-10.0); %Lymphocytes 8.2 % (21.0-51.0); %Monocytes 8.4 % (0.0-10.0); %Neutrophils 83.1 % (42.0-75.0); Mean Corpuscular HGB CONC 32.4 g/dL (32.0-36.0); Mean Corpuscular Hemoglobin 31.1 pg (27.0-31.0); Mean Corpuscular Volume 95.8 fL (78.0-98.0); Mean Platelet Volume 8.8 fL (7.4-10.4); Platelet Count 307 thou/uL (130-400); RBC Distribution Width 14.1 % (11.5-14.5); Red Blood Cell (RBC) Count 4.51 mill/uL (4.20-5.40); White Blood Cell (WBC) Count 14.8 thou/uL (4.8-10.8)
[2022-03-14 20:30] LABS: Actual Bicarbonate (HCO3a) 20.3 mEq/L (22-28); Analyzer IN Cardio ER; Base Excess (BEa) -1.5 mEq/L (-2.0 to +3.0); Calcium, Ionized (arterial) 1.09 mmol/L (1.12-1.30); Hemoglobin (Hb) 13.4 g/dL (12.0-16.0); O2 Tension (PaO2), arterial 260.6 mmHg (> 70.0)
[2022-03-14 20:37] LABS: Puncture Site LRA
[2022-03-14 20:43] LABS: Anion Gap 19 mmol/L (10-20); BUN (Urea Nitrogen) 20 mg/dL (9.8-20.1); Calc. Creatinine Clearance 0 mL/min (70-130); Carbon Dioxide 21 mmol/L (23-31); Chloride 103 mmol/L (98-107); Potassium 4.7 mmol/L (3.5-5.1); Sodium 138 mmol/L (136-145)
[2022-03-14 20:44] LABS: ALT (SGPT) 164 U/L (8-55); AST (SGOT) 275 U/L (5-34); Albumin 4.3 g/dL (3.4-4.8); Alkaline Phosphatase 107 U/L (40-110); Bilirubin, Total 0.8 mg/dL (0.2-1.2); Calcium 9.1 mg/dL (7.8-10.44); Estimated GFR 84; Globulin 3.4 g/dL (2.4-3.5); Glucose 131 mg/dL (83-110); Protein, Total 7.7 g/dL (5.8-8.1)
[2022-03-14 20:53] LABS: Acetaminophen Less than 10.0 mcg/mL (10.0-30.0); Alcohol Less than 10 mg/dL (Less than 10); Salicylate Less than 8.0 mg/dL (15.0-30.0)
[2022-03-14 20:59] LABS: Amphetamine Not Detected (NotDetected); Barbiturates Screen Not Detected (NotDetected); Benzodiazepine Screen Not Detected (NotDetected); Cocaine Metabolite Screen Not Detected (NotDetected); Methadone Not Detected (NotDetected); Methamphetamine Not Detected (NotDetected); Opiate Screen Detected (NotDetected); Oxycodone Screen Not Detected (NotDetected); Phencyclidine (PCP) Not Detected (NotDetected); THC/Cannabinoid Screen Not Detected (NotDetected); Tricyclic Screen Not Detected (NotDetected)
[2022-03-14] MEDS ORDERED: niCARdipine 25 MG/10 ML VIAL ONE (21:01)
[2022-03-14] MEDS ORDERED: Labetalol HCl 100 MG/20 ML VIAL ONE (21:02)
[2022-03-14] MEDS ORDERED: Furosemide 40 MG/4 ML VIAL ONE (21:04)
[2022-03-14] MEDS ORDERED: Mannitol 12.5 GM/50 ML SLOW IVP SCH (21:15)
[2022-03-14 21:26] LABS: CKMB 267.7 ng/mL (0-6.6)
[2022-03-14 21:27] LABS: INR-International Normal Ratio 1.1; PTT 32.8 sec (22.9-36.1); Prothrombin Time 14.1 sec (12.0-14.7)
[2022-03-14 21:29] LABS: SARS-CoV-2 NAA Rapid Test Not Detected (NotDetected)
[2022-03-14] MEDS ORDERED: NOREPINEPHRINE 8 MG/250 ML-D5W 250 ML ONE (21:35)
[2022-03-14] MEDS ORDERED: HUMAN PROTHROMBIN COMPLX IV SCH (21:45)
[2022-03-14] MEDS ORDERED: HUM PROTHROMBIN CPLX IV SCH (21:45)
[2022-03-14] MEDS ORDERED: ADMIXTURE FEE IV SCH (21:45)
[2022-03-14] MEDS ORDERED: [UNRECOGNIZED DRUG - OTHER] IV SCH (21:45)
[2022-03-14] MEDS ORDERED: Dextrose 5% in Water 1,000 ML IV PRN (22:23)
[2022-03-14] MEDS ORDERED: hydrALAZINE 20 MG/ML VIAL SLOW IVP PRN (22:23)
[2022-03-14] MEDS ORDERED: Dextrose 50% Abboject 50 ML SYRINGE SLOW IVP PRN (22:23)
[2022-03-14] MEDS ORDERED: TETANUS, DIPHTHERIA TOX,ADULT (TDVAX) 0.5 ML VIAL IM ONE (22:23)
[2022-03-14] MEDS ORDERED: Ventilator Sedation Protocol 1 EACH FS SCH (22:31)
[2022-03-14] MEDS ORDERED: Midazolam HCl 2 mg/2 ml Vial SLOW IVP PRN (22:34)
[2022-03-14] MEDS ORDERED: Morphine 4 MG/ML VIAL SLOW IVP PRN (22:45)
[2022-03-14] MEDS ORDERED: Fentanyl BOLUS 250 ML IVPB PRN (22:45)
[2022-03-14] MEDS ORDERED: Propofol BOLUS 1,000 MG/100 ML VIAL IV PRN (22:45)
[2022-03-14] MEDS ORDERED: NOREPINEPHRINE 8 MG/250 ML-D5W 250 ML IVPB SCH (22:45)
[2022-03-14] MEDS ORDERED: Propofol 1,000 MG/100 ML VIAL IV PRN (22:45)
[2022-03-14] MEDS ORDERED: Vancomycin 1 GM/200 ML BAG ONE (22:51)
[2022-03-14 23:09] LABS: Bacteria/HPF None Seen HPF (None Seen); Bilirubin Negative (Negative); Blood, Urine 3+ (Negative); Clarity Clear (Clear); Glucose, Urine (Dipstick) Normal (Negative); Ketone, Urine Trace mg/dL (Negative); Leukocyte Negative Leu/uL (Negative); Nitrite Negative (Negative); Protein, Urine (Dipstick) 200 mg/dL (Neg-Trace); RBC/HPF 0-3 HPF (0-3); Specific Gravity, Urine 1.022 (1.002-1.036); Squamous Epithelial None Seen HPF (0-3); Urobilinogen Normal mg/dL (Less than 2); pH, Urine 5.5 (5.0-9.0)
[2022-03-14 23:13] LABS: Lactic Acid 1.1 mmol/L (0.5-2.2)
[2022-03-14] MEDS ORDERED: Calcium Chloride 1 GM/10 ML Abboject SYRINGE IVP SCH (23:15)
[2022-03-15] MEDS: Sodium Chloride 0.9% 1,000 ML IV SCH ×3 (00:29→22:42)
[2022-03-15] MEDS ORDERED: Sodium Chloride 0.9% 500 ML IV SCH (01:45)
[2022-03-15 03:01] LABS: Troponin I 0.942 ng/mL (< 0.028)
[2022-03-15 04:38] LABS: #Lymphocytes 2.1 thou/uL (1.20-3.40); #Monocytes 1.1 thou/uL (0.11-0.59); #Neutrophils 9.2 thou/uL (1.40-6.50); %Basophils 0.4 % (0.0-1.0); %Eosinophils 0.1 % (0.0-10.0); %Lymphocytes 16.5 % (21.0-51.0); %Monocytes 8.8 % (0.0-10.0); %Neutrophils 74.3 % (42.0-75.0); Hemoglobin 11.6 g/dL (12.0-16.0); Mean Corpuscular HGB CONC 32.5 g/dL (32.0-36.0); Mean Corpuscular Hemoglobin 31.4 pg (27.0-31.0); Mean Corpuscular Volume 96.7 fL (78.0-98.0); Mean Platelet Volume 7.9 fL (7.4-10.4); Platelet Count 239 thou/uL (130-400); RBC Distribution Width 13.7 % (11.5-14.5); White Blood Cell (WBC) Count 12.4 thou/uL (4.8-10.8)
[2022-03-15 05:02] LABS: Anion Gap 13 mmol/L (10-20); BUN (Urea Nitrogen) 22 mg/dL (9.8-20.1); CK (CPK) 3165 U/L (29-168); Calc. Creatinine Clearance 76 mL/min (70-130); Calcium 9.1 mg/dL (7.8-10.44); Carbon Dioxide 23 mmol/L (23-31); Chloride 107 mmol/L (98-107); Estimated GFR 92; Glucose 115 mg/dL (83-110); Magnesium 1.5 mg/dL (1.6-2.6); Sodium 140 mmol/L (136-145)
[2022-03-15 05:05] LABS: Phosphorus 3.5 mg/dL (2.3-4.7)
[2022-03-15] MEDS ORDERED: Magnesium Sulfate In Water 4 GM in Premix Bag 1 BAG IVPB SCH (07:45)
[2022-03-15] MEDS ORDERED: Potassium Chloride 20 MEQ in Premix Bag 1 BAG IVPB SCH (07:45)
[2022-03-15] MEDS ORDERED: Sodium Chloride 0.9% (PF) 10 ML VIAL FS PRN (07:45)
[2022-03-15] MEDS: Pantoprazole 40 MG VIAL IVP SCH ×2 (07:54→22:43)
[2022-03-15 08:22] LABS: Actual Bicarbonate (HCO3a) 21.3 mEq/L (22-28); Base Excess (BEa) -1.2 mEq/L (-2.0 to +3.0); CO2 Tension 29.3 mmHg (35.0-45.0); Calcium, Ionized (arterial) 1.18 mmol/L (1.12-1.30); Carboxyhemoglobin (COHb) 0.8 gm% (0.0-3.0); Hemoglobin (Hb) 12.2 g/dL (12.0-16.0); O2 Tension (PaO2), arterial 132.2 mmHg (> 70.0); Potassium - ABG Lab 3.23 mmol/L (3.70-5.30); pH, Arterial 7.48 (7.35-7.45)
[2022-03-15 08:26] LABS: Puncture Site LRA
[2022-03-15 08:27] LABS: ALV-art Gradient 116.375 mmHg (0-20)
[2022-03-15] MEDS ORDERED: FLU VACC QS2022-23(65YR UP)/PF 240 MCG/0.7 ML SYRINGE IM ONE (09:00)
[2022-03-15] MEDS ORDERED: Famotidine/PF 20 mg/2ml Vial SLOW IVP SCH (09:00)
[2022-03-15] MEDS ORDERED: cefTRIAXone\\ROCEPHIN 2 GM in Sodium Chloride 0.9% 100 ML IVPB SCH (13:30)
[2022-03-15] MEDS ORDERED: Piperacillin/Tazobactam 3.375 GM in Sodium Chloride 0.9% 100 ML IVPB SCH ×2 (13:30→13:45)
[2022-03-15] MEDS: Acetaminophen 650 MG/20.3 ML UDCUP PO SCH ×2 (13:47→22:43)
[2022-03-15] MEDS ORDERED: CEFAZOLIN 2 GM in Sodium Chloride 0.9% 100 ML IVPB SCH (17:30)
[2022-03-15 17:46] LABS: INR-International Normal Ratio 1.1; Prothrombin Time 14.1 sec (12.0-14.7)
[2022-03-15 17:48] LABS: PTT 30.5 sec (22.9-36.1)
[2022-03-15] MEDS ORDERED: Thrombin 5000 UNITS/5 ML VIAL ONE (18:35)
[2022-03-15] MEDS ORDERED: EPINEPHrine 1 MG/ML AMP ONE ×2 (18:35→19:13)
[2022-03-15] MEDS ORDERED: Lidocaine 1% (PF) 30 ML VIAL ONE (18:35)
[2022-03-15] MEDS ORDERED: Neomycin-Polymyxin 1 ML AMP ONE ×3 (18:35→20:40)
[2022-03-15] MEDS ORDERED: Bacitracin Zinc Ointment 30 gm TUBE ONE (18:35)
[2022-03-15] MEDS ORDERED: fentaNYL Citrate/PF 100 MCG/2 ML SYRINGE ONE (18:47)
[2022-03-15] MEDS: Piperacillin/Tazobactam 3.375 GM in Sodium Chloride 0.9% 100 ML IVPB SCH (19:03)
[2022-03-15] MEDS ORDERED: PHENYLEPHRINE-NS 100 MCG/ML 10 ML SYRINGE ONE (19:31)
[2022-03-15] MEDS ORDERED: Dexamethasone 20 MG/5 ML VIAL ONE (19:31)
[2022-03-15] MEDS ORDERED: PROPOFOL 200 MG/20 ML VIAL ONE (19:31)
[2022-03-15] MEDS ORDERED: Vecuronium 10 MG VIAL ONE (19:31)
[2022-03-15] MEDS ORDERED: Rocuronium Bromide 10 MG/ML (10ML VIAL) ONE (19:31)
[2022-03-15] MEDS ORDERED: Ondansetron PF 4 MG/2 ML Vial ONE (19:31)
[2022-03-15] MEDS ORDERED: Lidocaine 1% PF 5 ML VIAL ONE (19:31)
[2022-03-15] MEDS ORDERED: Phenylephrine 10 MG/ML VIAL ONE ×2 (19:39→21:04)
[2022-03-15 19:58] LABS: #Lymphocytes 1.9 thou/uL (1.20-3.40); #Neutrophils 9.9 thou/uL (1.40-6.50); %Basophils 0.1 % (0.0-1.0); %Eosinophils 0.1 % (0.0-10.0); %Lymphocytes 14.9 % (21.0-51.0); %Monocytes 7.9 % (0.0-10.0); Hemoglobin 11.3 g/dL (12.0-16.0); Mean Corpuscular HGB CONC 32.3 g/dL (32.0-36.0); Mean Corpuscular Hemoglobin 31.3 pg (27.0-31.0); Mean Platelet Volume 8.3 fL (7.4-10.4); Platelet Count 209 thou/uL (130-400); RBC Distribution Width 13.7 % (11.5-14.5); Red Blood Cell (RBC) Count 3.61 mill/uL (4.20-5.40); White Blood Cell (WBC) Count 12.8 thou/uL (4.8-10.8)
[2022-03-15 20:38] LABS: Anion Gap 12 mmol/L (10-20); BUN (Urea Nitrogen) 15 mg/dL (9.8-20.1); Calc. Creatinine Clearance 86 mL/min (70-130); Calcium 8.2 mg/dL (7.8-10.44); Carbon Dioxide 21 mmol/L (23-31); Chloride 113 mmol/L (98-107); Estimated GFR 95; Glucose 117 mg/dL (83-110); Magnesium 1.9 mg/dL (1.6-2.6); Phosphorus 2.6 mg/dL (2.3-4.7); Potassium 3.4 mmol/L (3.5-5.1); Sodium 143 mmol/L (136-145)
[2022-03-15] MEDS ORDERED: Potassium Chloride 40 MEQ in Premix Bag 1 BAG IVPB SCH (21:15)
[2022-03-15] MEDS ORDERED: Fentanyl CADD 100 ML ONE (22:38)
[2022-03-15] MEDS: Amlodipine 5 MG TAB PO SCH (22:43)
[2022-03-16] MEDS: Acetaminophen 650 MG/20.3 ML UDCUP PO SCH ×4 (01:26→19:25)
[2022-03-16] MEDS: Piperacillin/Tazobactam 3.375 GM in Sodium Chloride 0.9% 100 ML IVPB SCH (02:11)
[2022-03-16 02:50] LABS: Actual Bicarbonate (HCO3a) 20.8 mEq/L (22-28); Base Excess (BEa) -3.5 mEq/L (-2.0 to +3.0); CO2 Tension 34.7 mmHg (35.0-45.0); Calcium, Ionized (arterial) 1.11 mmol/L (1.12-1.30); Carboxyhemoglobin (COHb) 0.5 gm% (0.0-3.0); Hemoglobin (Hb) 11.2 g/dL (12.0-16.0); O2 Tension (PaO2), arterial 92.9 mmHg (> 70.0); Potassium - ABG Lab 4.48 mmol/L (3.70-5.30)
[2022-03-16 02:51] LABS: ALV-art Gradient 148.925 mmHg (0-20); Puncture Site LRA
[2022-03-16 05:07] LABS: #Lymphocytes 0.7 thou/uL (1.20-3.40); #Monocytes 0.7 thou/uL (0.11-0.59); #Neutrophils 11.4 thou/uL (1.40-6.50); %Eosinophils 0.1 % (0.0-10.0); %Lymphocytes 5.4 % (21.0-51.0); %Monocytes 5.6 % (0.0-10.0); %Neutrophils 88.9 % (42.0-75.0); Hemoglobin 10.6 g/dL (12.0-16.0); Mean Corpuscular HGB CONC 31.9 g/dL (32.0-36.0); Mean Corpuscular Hemoglobin 31.3 pg (27.0-31.0); Mean Corpuscular Volume 98.1 fL (78.0-98.0); Mean Platelet Volume 8.5 fL (7.4-10.4); Platelet Count 194 thou/uL (130-400); RBC Distribution Width 13.9 % (11.5-14.5); White Blood Cell (WBC) Count 12.8 thou/uL (4.8-10.8)
[2022-03-16 05:24] LABS: Anion Gap 12 mmol/L (10-20); BUN (Urea Nitrogen) 16 mg/dL (9.8-20.1); CK (CPK) 1132 U/L (29-168); Calc. Creatinine Clearance 73 mL/min (70-130); Calcium 8.1 mg/dL (7.8-10.44); Carbon Dioxide 20 mmol/L (23-31); Chloride 115 mmol/L (98-107); Estimated GFR 91; Glucose 134 mg/dL (83-110); Magnesium 1.8 mg/dL (1.6-2.6); Phosphorus 2.6 mg/dL (2.3-4.7); Potassium 4.5 mmol/L (3.5-5.1); Sodium 142 mmol/L (136-145)
[2022-03-16] MEDS: Sodium Chloride 0.9% 1,000 ML IV SCH ×2 (06:10→15:13)
[2022-03-16] MEDS ORDERED: Calcium Chloride 1 GM/10 ML Abboject SYRINGE IVP SCH (06:15)
[2022-03-16] MEDS: Cefepime 2 GM in Sodium Chloride 0.9% 100 ML IVPB SCH ×2 (08:16→15:31)
[2022-03-16] MEDS: Pantoprazole 40 MG VIAL IVP SCH ×2 (08:16→20:24)
[2022-03-16] MEDS: Atorvastatin Calcium 40 MG TAB PO SCH (09:06)
[2022-03-16] MEDS ORDERED: DC Sedation Protocol FS ONE (14:41)
[2022-03-16] MEDS ORDERED: Morphine 4 MG/ML VIAL SLOW IVP PRN (14:42)
[2022-03-16] MEDS ORDERED: Morphine 2 MG/ML VIAL SLOW IVP PRN (14:42)
[2022-03-16] MEDS ORDERED: Dexamethasone 4 mg/ml Vial SLOW IVP SCH (15:15)
[2022-03-16] MEDS: Dexamethasone 4 mg/ml Vial SLOW IVP SCH (20:23)
[2022-03-16] MEDS: Amlodipine 5 MG TAB PO SCH (20:27)
[2022-03-17] MEDS ORDERED: Acetaminophen W/ Codeine 5 ML UDCUP PO SCH ×2 (00:30→06:00)
[2022-03-17] MEDS: Cefepime 2 GM in Sodium Chloride 0.9% 100 ML IVPB SCH ×2 (00:42→11:15)
[2022-03-17] MEDS: Sodium Chloride 0.9% 1,000 ML IV SCH (00:43)
[2022-03-17] MEDS: Acetaminophen 650 MG/20.3 ML UDCUP PO SCH ×4 (00:43→17:39)
[2022-03-17] MEDS ORDERED: Acetaminophen W/ Codeine 5 ML UDCUP PO PRN (00:55)
[2022-03-17] MEDS: Insulin Regular 300 UNITS/3 ML VIAL SC PRN ×3 (01:21→21:30)
[2022-03-17] MEDS: Dexamethasone 4 mg/ml Vial SLOW IVP SCH ×3 (02:16→14:19)
[2022-03-17 03:53] LABS: #Basophils 0.1 thou/uL (0.0-0.2); #Monocytes 0.7 thou/uL (0.11-0.59); #Neutrophils 11.4 thou/uL (1.40-6.50); %Basophils 0.5 % (0.0-1.0); %Eosinophils 0.1 % (0.0-10.0); %Lymphocytes 7.2 % (21.0-51.0); %Monocytes 5.5 % (0.0-10.0); %Neutrophils 86.7 % (42.0-75.0); Mean Corpuscular HGB CONC 31.5 g/dL (32.0-36.0); Mean Corpuscular Hemoglobin 30.9 pg (27.0-31.0); Platelet Count 194 thou/uL (130-400); RBC Distribution Width 13.9 % (11.5-14.5); Red Blood Cell (RBC) Count 3.23 mill/uL (4.20-5.40); White Blood Cell (WBC) Count 13.2 thou/uL (4.8-10.8)
[2022-03-17 04:06] LABS: Anion Gap 11 mmol/L (10-20); BUN (Urea Nitrogen) 20 mg/dL (9.8-20.1); Calc. Creatinine Clearance 76 mL/min (70-130); Calcium 8.6 mg/dL (7.8-10.44); Carbon Dioxide 18 mmol/L (23-31); Chloride 121 mmol/L (98-107); Estimated GFR 91; Glucose 154 mg/dL (83-110); Phosphorus 2.5 mg/dL (2.3-4.7); Potassium 4.3 mmol/L (3.5-5.1); Sodium 146 mmol/L (136-145)
[2022-03-17 04:08] LABS: Troponin I 0.198 ng/mL (< 0.028)
[2022-03-17] MEDS: Labetalol HCl 100 MG/20 ML VIAL SLOW IVP PRN ×2 (05:49→22:35)
[2022-03-17] MEDS: Atorvastatin Calcium 40 MG TAB PO SCH (08:40)
[2022-03-17] MEDS: Pantoprazole 40 MG VIAL IVP SCH (08:41)
[2022-03-17 10:19] LABS: Actual Bicarbonate (HCO3a) 17.4 mEq/L (22-28); Base Excess (BEa) -5.1 mEq/L (-2.0 to +3.0); Calcium, Ionized (arterial) 1.23 mmol/L (1.12-1.30); Carboxyhemoglobin (COHb) 0.3 gm% (0.0-3.0); Hemoglobin (Hb) 10.6 g/dL (12.0-16.0); O2 Tension (PaO2), arterial 172.9 mmHg (> 70.0); Potassium - ABG Lab 4.26 mmol/L (3.70-5.30); pH, Arterial 7.46 (7.35-7.45)
[2022-03-17 10:21] LABS: ALV-art Gradient 80.925 mmHg (0-20); CO2 Tension 25.1 mmHg (35.0-45.0); Puncture Site LRA
[2022-03-17] MEDS ORDERED: Racepinephrine 2.25% 0.5 ML NEB ONE (11:06)
[2022-03-17] MEDS: Amlodipine 5 MG TAB PO SCH (20:51)
[2022-03-17] MEDS: Metoclopramide HCl 10 MG/2 ML VIAL IVP SCH (21:09)
[2022-03-18] MEDS: Acetaminophen 650 MG/20.3 ML UDCUP PO SCH ×4 (00:07→18:45)
[2022-03-18] MEDS: Cefepime 2 GM in Sodium Chloride 0.9% 100 ML IVPB SCH (00:07)
[2022-03-18] MEDS: Labetalol HCl 100 MG/20 ML VIAL SLOW IVP PRN (03:12)
[2022-03-18] MEDS: Metoclopramide HCl 10 MG/2 ML VIAL IVP SCH (06:15)
[2022-03-18 06:54] LABS: #Monocytes 1.2 thou/uL (0.11-0.59); %Eosinophils 0.2 % (0.0-10.0); %Lymphocytes 13.9 % (21.0-51.0); %Monocytes 8.3 % (0.0-10.0); %Neutrophils 77.6 % (42.0-75.0); Hemoglobin 9.8 g/dL (12.0-16.0); Mean Corpuscular HGB CONC 31.3 g/dL (32.0-36.0); Mean Corpuscular Volume 99.2 fL (78.0-98.0); Mean Platelet Volume 9.1 fL (7.4-10.4); Platelet Count 208 thou/uL (130-400); RBC Distribution Width 13.9 % (11.5-14.5); Red Blood Cell (RBC) Count 3.15 mill/uL (4.20-5.40); White Blood Cell (WBC) Count 14.2 thou/uL (4.8-10.8)
[2022-03-18 07:19] LABS: Anion Gap 12 mmol/L (10-20); BUN (Urea Nitrogen) 24 mg/dL (9.8-20.1); Calc. Creatinine Clearance 80 mL/min (70-130); Calcium 9.2 mg/dL (7.8-10.44); Carbon Dioxide 19 mmol/L (23-31); Chloride 120 mmol/L (98-107); Estimated GFR 92; Glucose 144 mg/dL (83-110); Magnesium 1.7 mg/dL (1.6-2.6); Phosphorus 2.3 mg/dL (2.3-4.7); Potassium 4.1 mmol/L (3.5-5.1); Sodium 147 mmol/L (136-145)
[2022-03-18 07:28] LABS: Actual Bicarbonate (HCO3a) 17.8 mEq/L (22-28); Base Excess (BEa) -3.6 mEq/L (-2.0 to +3.0); Calcium, Ionized (arterial) 1.24 mmol/L (1.12-1.30); Carboxyhemoglobin (COHb) 0.4 gm% (0.0-3.0); Hemoglobin (Hb) 12.2 g/dL (12.0-16.0); O2 Tension (PaO2), arterial 163.7 mmHg (> 70.0); Potassium - ABG Lab 3.94 mmol/L (3.70-5.30)
[2022-03-18] MEDS ORDERED: Magnesium 2 GM/50 ML(in water) 2 GM in Premix Bag 1 BAG IVPB SCH (07:30)
[2022-03-18 07:39] LABS: CO2 Tension 23.2 mmHg (35.0-45.0); Puncture Site RBA
[2022-03-18] MEDS: Polyethylene Glycol 3350 17 GM Packet PO SCH (08:58)
[2022-03-18] MEDS: Pantoprazole 40 MG VIAL IVP SCH (08:58)
[2022-03-18] MEDS: Saccharomyces boulardii 250 MG CAP PER TUBE SCH (08:58)
[2022-03-18] MEDS: Atorvastatin Calcium 40 MG TAB PO SCH (08:58)
[2022-03-18] MEDS: cefTRIAXone\\ROCEPHIN 2 GM in Sodium Chloride 0.9% 100 ML IVPB SCH (09:37)
[2022-03-18] MEDS ORDERED: FENTANYL 500 MCG/10 ML VIAL 2,000 MCG in Sodium Chloride 0.9% 60 ML IV PRN (09:55)
[2022-03-18] MEDS ORDERED: Fentanyl 100 MCG/2 ML VIAL SLOW IVP ONE (10:30)
[2022-03-18] MEDS ORDERED: Fentanyl 100 MCG/2 ML VIAL SLOW IVP SCH (10:30)
[2022-03-18] MEDS: Amlodipine 5 MG TAB PO SCH (21:17)
[2022-03-19 03:54] LABS: #Eosinphils 0.1 thou/uL (0.0-0.7); #Lymphocytes 2.6 thou/uL (1.20-3.40); #Neutrophils 6.9 thou/uL (1.40-6.50); %Basophils 0.3 % (0.0-1.0); %Eosinophils 0.5 % (0.0-10.0); %Lymphocytes 24.8 % (21.0-51.0); %Monocytes 9.2 % (0.0-10.0); %Neutrophils 65.2 % (42.0-75.0); Hemoglobin 10.5 g/dL (12.0-16.0); Mean Corpuscular HGB CONC 31.8 g/dL (32.0-36.0); Mean Corpuscular Hemoglobin 31.7 pg (27.0-31.0); Mean Corpuscular Volume 99.8 fL (78.0-98.0); Mean Platelet Volume 9.7 fL (7.4-10.4); Platelet Count 185 thou/uL (130-400); RBC Distribution Width 13.7 % (11.5-14.5); White Blood Cell (WBC) Count 10.6 thou/uL (4.8-10.8)
[2022-03-19 04:22] LABS: Anion Gap 14 mmol/L (10-20); BUN (Urea Nitrogen) 26 mg/dL (9.8-20.1); Calc. Creatinine Clearance 89 mL/min (70-130); Calcium 9.1 mg/dL (7.8-10.44); Carbon Dioxide 18 mmol/L (23-31); Chloride 119 mmol/L (98-107); Estimated GFR 94; Glucose 118 mg/dL (83-110); Magnesium 1.7 mg/dL (1.6-2.6); Phosphorus 3.1 mg/dL (2.3-4.7); Potassium 4.4 mmol/L (3.5-5.1); Sodium 147 mmol/L (136-145)
[2022-03-19] MEDS: Acetaminophen 650 MG/20.3 ML UDCUP PO SCH ×5 (06:13→23:34)
[2022-03-19] MEDS: Atorvastatin Calcium 40 MG TAB PO SCH (10:12)
[2022-03-19] MEDS: Polyethylene Glycol 3350 17 GM Packet PO SCH (10:12)
[2022-03-19] MEDS: Saccharomyces boulardii 250 MG CAP PER TUBE SCH (10:12)
[2022-03-19] MEDS: cefTRIAXone\\ROCEPHIN 2 GM in Sodium Chloride 0.9% 100 ML IVPB SCH (10:12)
[2022-03-19] MEDS: Amantadine HCl 100 mg Capsule PO SCH (10:12)
[2022-03-19] MEDS: Pantoprazole 40 MG VIAL IVP SCH (10:13)
[2022-03-19] MEDS: Labetalol HCl 100 MG/20 ML VIAL SLOW IVP PRN (11:38)
[2022-03-19] MEDS: Amlodipine 5 MG TAB PO SCH (20:35)
[2022-03-20] MEDS: Acetaminophen 650 MG/20.3 ML UDCUP PO SCH ×3 (06:00→17:58)
[2022-03-20] MEDS ORDERED: Fentanyl 100 MCG/2 ML VIAL SLOW IVP SCH (08:00)
[2022-03-20] MEDS ORDERED: Lidocaine 2% 20 ml MDV SC SCH (08:00)
[2022-03-20] MEDS ORDERED: Vecuronium 10 MG VIAL IVP SCH (08:00)
[2022-03-20] MEDS ORDERED: Midazolam HCl 2 mg/2 ml Vial SLOW IVP SCH (08:00)
[2022-03-20] MEDS ORDERED: CEFAZOLIN 2 GM VIAL SLOW IVP SCH (08:15)
[2022-03-20] MEDS: cefTRIAXone\\ROCEPHIN 2 GM in Sodium Chloride 0.9% 100 ML IVPB SCH (08:37)
[2022-03-20] MEDS: Pantoprazole 40 MG VIAL IVP SCH (08:38)
[2022-03-20] MEDS ORDERED: PROPOFOL 0 ML ONE (09:28)
[2022-03-20] MEDS ORDERED: Fentanyl 100 MCG/2 ML VIAL ONE (09:48)
[2022-03-20] MEDS ORDERED: Midazolam HCl 2 mg/2 ml Vial ONE (09:49)
[2022-03-20] MEDS ORDERED: Hydrocortisone Sod Succ/PF 100 mg/2 ml Vial IVP SCH ×5 (10:30→22:00)
[2022-03-20] MEDS ORDERED: Sodium Chloride 0.9% 1,000 ML IV SCH (11:15)
[2022-03-20] MEDS: Amantadine HCl 100 mg Capsule PO SCH (12:17)
[2022-03-20] MEDS: Atorvastatin Calcium 40 MG TAB PO SCH (12:17)
[2022-03-20] MEDS: Saccharomyces boulardii 250 MG CAP PER TUBE SCH (12:18)
[2022-03-20] MEDS: Polyethylene Glycol 3350 17 GM Packet PO SCH (12:19)
[2022-03-20] MEDS: Amlodipine 5 MG TAB PO SCH (20:54)
[2022-03-21] MEDS: Acetaminophen 650 MG/20.3 ML UDCUP PO SCH ×4 (00:35→21:37)
[2022-03-21 03:56] LABS: #Monocytes 0.6 thou/uL (0.11-0.59); %Eosinophils 0.2 % (0.0-10.0); %Lymphocytes 20.7 % (21.0-51.0); %Monocytes 6.5 % (0.0-10.0); %Neutrophils 72.6 % (42.0-75.0); Hemoglobin 9.9 g/dL (12.0-16.0); Mean Corpuscular HGB CONC 33.3 g/dL (32.0-36.0); Mean Corpuscular Hemoglobin 33.2 pg (27.0-31.0); Mean Corpuscular Volume 99.6 fL (78.0-98.0); Mean Platelet Volume 9.1 fL (7.4-10.4); Platelet Count 215 thou/uL (130-400); RBC Distribution Width 13.2 % (11.5-14.5); Red Blood Cell (RBC) Count 2.98 mill/uL (4.20-5.40); White Blood Cell (WBC) Count 9.7 thou/uL (4.8-10.8)
[2022-03-21 04:09] LABS: Anion Gap 14 mmol/L (10-20); BUN (Urea Nitrogen) 19 mg/dL (9.8-20.1); Calc. Creatinine Clearance 94 mL/min (70-130); Calcium 8.6 mg/dL (7.8-10.44); Carbon Dioxide 21 mmol/L (23-31); Chloride 116 mmol/L (98-107); Estimated GFR 96; Glucose 107 mg/dL (83-110); Magnesium 1.9 mg/dL (1.6-2.6); Phosphorus 3.4 mg/dL (2.3-4.7); Potassium 3.9 mmol/L (3.5-5.1); Sodium 147 mmol/L (136-145)
[2022-03-21] MEDS ORDERED: Hydrocortisone Sod Succ/PF 100 mg/2 ml Vial IVP SCH ×2 (06:00→20:30)
[2022-03-21] MEDS ORDERED: Cyclobenzaprine 10 MG TAB PER TUBE PRN (07:25)
[2022-03-21] MEDS: Amantadine HCl 100 mg Capsule PO SCH ×2 (08:13→21:38)
[2022-03-21] MEDS: Atorvastatin Calcium 40 MG TAB PO SCH (08:14)
[2022-03-21] MEDS: Saccharomyces boulardii 250 MG CAP PER TUBE SCH (08:15)
[2022-03-21] MEDS: Pantoprazole 40 MG VIAL IVP SCH (08:15)
[2022-03-21] MEDS: Polyethylene Glycol 3350 17 GM Packet PO SCH (08:16)
[2022-03-21] MEDS: cefTRIAXone\\ROCEPHIN 2 GM in Sodium Chloride 0.9% 100 ML IVPB SCH (08:16)
[2022-03-21] MEDS ORDERED: Sodium Chloride 0.9% 500 ML IV SCH ×2 (20:30→22:30)
[2022-03-21] MEDS ORDERED: Calcium Chloride 1 GM/10 ML Abboject SYRINGE IVP SCH (20:30)
[2022-03-21 22:43] LABS: #Eosinphils 0.2 thou/uL (0.0-0.7); #Lymphocytes 1.3 thou/uL (1.20-3.40); #Monocytes 0.4 thou/uL (0.11-0.59); #Neutrophils 6.7 thou/uL (1.40-6.50); %Basophils 0.4 % (0.0-1.0); %Monocytes 5.1 % (0.0-10.0); %Neutrophils 77.4 % (42.0-75.0); Hemoglobin 8.4 g/dL (12.0-16.0); Mean Corpuscular HGB CONC 31.6 g/dL (32.0-36.0); Mean Corpuscular Hemoglobin 31.6 pg (27.0-31.0); Platelet Count 196 thou/uL (130-400); RBC Distribution Width 13.4 % (11.5-14.5); Red Blood Cell (RBC) Count 2.65 mill/uL (4.20-5.40); White Blood Cell (WBC) Count 8.7 thou/uL (4.8-10.8)
[2022-03-21 23:12] LABS: Anion Gap 11 mmol/L (10-20); BUN (Urea Nitrogen) 22 mg/dL (9.8-20.1); Calc. Creatinine Clearance 88 mL/min (70-130); Carbon Dioxide 20 mmol/L (23-31); Chloride 118 mmol/L (98-107); Estimated GFR 94; Glucose 140 mg/dL (83-110); Magnesium 1.7 mg/dL (1.6-2.6); Phosphorus 2.6 mg/dL (2.3-4.7); Potassium 3.1 mmol/L (3.5-5.1); Sodium 146 mmol/L (136-145)
[2022-03-21] MEDS ORDERED: Midodrine HCl 5 MG TAB PO SCH (23:15)
[2022-03-21] MEDS ORDERED: Magnesium 2 GM/50 ML(in water) 2 GM in Premix Bag 1 BAG IVPB SCH (23:59)
[2022-03-22] MEDS: Acetaminophen 650 MG/20.3 ML UDCUP PO SCH ×4 (00:23→17:55)
[2022-03-22] MEDS ORDERED: Potassium Phosphate 30 MMOL in Sodium Chloride 0.9% 250 ML 250 ML IVPB SCH (00:30)
[2022-03-22 03:25] LABS: #Lymphocytes 1.1 thou/uL (1.20-3.40); #Monocytes 0.4 thou/uL (0.11-0.59); #Neutrophils 7.2 thou/uL (1.40-6.50); %Eosinophils 0.5 % (0.0-10.0); %Lymphocytes 12.4 % (21.0-51.0); %Monocytes 4.1 % (0.0-10.0); %Neutrophils 82.9 % (42.0-75.0); Hemoglobin 8.8 g/dL (12.0-16.0); Mean Corpuscular HGB CONC 32.4 g/dL (32.0-36.0); Mean Corpuscular Hemoglobin 32.5 pg (27.0-31.0); Mean Platelet Volume 8.8 fL (7.4-10.4); Platelet Count 208 thou/uL (130-400); RBC Distribution Width 13.2 % (11.5-14.5); Red Blood Cell (RBC) Count 2.72 mill/uL (4.20-5.40); White Blood Cell (WBC) Count 8.6 thou/uL (4.8-10.8)
[2022-03-22 03:51] LABS: Anion Gap 12 mmol/L (10-20); BUN (Urea Nitrogen) 24 mg/dL (9.8-20.1); Calc. Creatinine Clearance 87 mL/min (70-130); Calcium 8.8 mg/dL (7.8-10.44); Carbon Dioxide 21 mmol/L (23-31); Chloride 117 mmol/L (98-107); Estimated GFR 94; Glucose 169 mg/dL (83-110); Phosphorus 4.2 mg/dL (2.3-4.7); Potassium 3.7 mmol/L (3.5-5.1); Sodium 146 mmol/L (136-145)
[2022-03-22] MEDS: Insulin Regular 300 UNITS/3 ML VIAL SC PRN (04:11)
[2022-03-22] MEDS ORDERED: Hydrocortisone Sod Succ/PF 100 mg/2 ml Vial IVP SCH (06:00)
[2022-03-22] MEDS ORDERED: Furosemide 20 MG/2 ML VIAL SLOW IVP SCH (08:15)
[2022-03-22] MEDS ORDERED: Lansoprazole 15 MG/5 ML (BATCHED)UDCUP PER TUBE SCH ×2 (09:00→11:00)
[2022-03-22] MEDS ORDERED: Potassium Chloride 40 MEQ in Premix Bag 1 BAG IVPB SCH (09:00)
[2022-03-22] MEDS: Atorvastatin Calcium 40 MG TAB PO SCH (09:10)
[2022-03-22] MEDS: Amantadine HCl 100 mg Capsule PO SCH ×2 (09:10→20:23)
[2022-03-22] MEDS: Polyethylene Glycol 3350 17 GM Packet PO SCH (09:16)
[2022-03-22] MEDS: Saccharomyces boulardii 250 MG CAP PER TUBE SCH (09:16)
[2022-03-22] MEDS: Amlodipine 5 MG TAB PO SCH (09:16)
[2022-03-22] MEDS ORDERED: Acetaminophen W/ Codeine 5 ML UDCUP PO PRN ×2 (09:33→10:15)
[2022-03-22] MEDS: cefTRIAXone\\ROCEPHIN 2 GM in Sodium Chloride 0.9% 100 ML IVPB SCH (09:48)
[2022-03-22] MEDS: hydrALAZINE 20 MG/ML VIAL SLOW IVP PRN (11:32)
[2022-03-22] MEDS ORDERED: Labetalol HCl 100 MG/20 ML VIAL SLOW IVP SCH (13:45)
[2022-03-23] MEDS: Acetaminophen 650 MG/20.3 ML UDCUP PO SCH ×4 (00:06→17:37)
[2022-03-23 06:56] LABS: #Eosinphils 0.3 thou/uL (0.0-0.7); #Lymphocytes 2.7 thou/uL (1.20-3.40); #Neutrophils 9.1 thou/uL (1.40-6.50); %Basophils 0.2 % (0.0-1.0); %Eosinophils 2.6 % (0.0-10.0); %Lymphocytes 20.3 % (21.0-51.0); %Monocytes 7.3 % (0.0-10.0); %Neutrophils 69.6 % (42.0-75.0); Hemoglobin 10.3 g/dL (12.0-16.0); Mean Corpuscular HGB CONC 31.4 g/dL (32.0-36.0); Mean Corpuscular Hemoglobin 31.2 pg (27.0-31.0); Mean Corpuscular Volume 99.3 fL (78.0-98.0); Mean Platelet Volume 8.9 fL (7.4-10.4); Platelet Count 265 thou/uL (130-400); RBC Distribution Width 13.3 % (11.5-14.5); Red Blood Cell (RBC) Count 3.29 mill/uL (4.20-5.40); White Blood Cell (WBC) Count 13.1 thou/uL (4.8-10.8)
[2022-03-23 07:59] LABS: Anion Gap 12 mmol/L (10-20); BUN (Urea Nitrogen) 21 mg/dL (9.8-20.1); Calc. Creatinine Clearance 89 mL/min (70-130); Calcium 8.7 mg/dL (7.8-10.44); Carbon Dioxide 21 mmol/L (23-31); Chloride 118 mmol/L (98-107); Estimated GFR 95; Glucose 141 mg/dL (83-110); Magnesium 1.7 mg/dL (1.6-2.6); Phosphorus 2.5 mg/dL (2.3-4.7); Potassium 3.3 mmol/L (3.5-5.1); Sodium 148 mmol/L (136-145)
[2022-03-23] MEDS ORDERED: Potassium Phosphate 30 MMOL, Magnesium Sulfate 2 GM in Sodium Chloride 0.9% 250 ML 250 ML IVPB SCH (08:30)
[2022-03-23] MEDS: Atorvastatin Calcium 40 MG TAB PO SCH (09:50)
[2022-03-23] MEDS: Amantadine HCl 100 mg Capsule PO SCH ×2 (09:50→20:38)
[2022-03-23] MEDS: Amlodipine 5 MG TAB PO SCH (09:50)
[2022-03-23] MEDS: Saccharomyces boulardii 250 MG CAP PER TUBE SCH (09:50)
[2022-03-23] MEDS: cefTRIAXone\\ROCEPHIN 2 GM in Sodium Chloride 0.9% 100 ML IVPB SCH (09:50)
[2022-03-23] MEDS: Polyethylene Glycol 3350 17 GM Packet PO SCH (09:52)
[2022-03-23] MEDS: Lansoprazole 15 MG/5 ML (BATCHED)UDCUP PER TUBE SCH (09:52)
[2022-03-23] MEDS: hydrALAZINE 20 MG/ML VIAL SLOW IVP PRN ×2 (17:36→22:08)
[2022-03-24] MEDS: Acetaminophen 650 MG/20.3 ML UDCUP PO SCH ×4 (00:08→18:26)
[2022-03-24 04:52] LABS: Anion Gap 12 mmol/L (10-20); BUN (Urea Nitrogen) 16 mg/dL (9.8-20.1); Calc. Creatinine Clearance 102 mL/min (70-130); Calcium 8.5 mg/dL (7.8-10.44); Carbon Dioxide 21 mmol/L (23-31); Chloride 117 mmol/L (98-107); Estimated GFR 99; Glucose 115 mg/dL (83-110); Magnesium 1.8 mg/dL (1.6-2.6); Phosphorus 2.6 mg/dL (2.3-4.7); Potassium 3.6 mmol/L (3.5-5.1); Sodium 146 mmol/L (136-145)
[2022-03-24 07:28] LABS: #Eosinphils 0.4 thou/uL (0.0-0.7); #Lymphocytes 1.9 thou/uL (1.20-3.40); #Monocytes 0.8 thou/uL (0.11-0.59); %Basophils 0.2 % (0.0-1.0); %Eosinophils 3.6 % (0.0-10.0); %Lymphocytes 17.4 % (21.0-51.0); %Neutrophils 71.8 % (42.0-75.0); Hemoglobin 10.4 g/dL (12.0-16.0); Mean Corpuscular Hemoglobin 32.3 pg (27.0-31.0); Mean Platelet Volume 9.4 fL (7.4-10.4); Platelet Count 212 thou/uL (130-400); RBC Distribution Width 13.5 % (11.5-14.5); Red Blood Cell (RBC) Count 3.23 mill/uL (4.20-5.40); White Blood Cell (WBC) Count 11.2 thou/uL (4.8-10.8)
[2022-03-24] MEDS ORDERED: Potassium Phosphate 30 MMOL, Magnesium Sulfate 2 GM in Sodium Chloride 0.9% 250 ML 250 ML IVPB SCH (08:45)
[2022-03-24] MEDS: Amantadine HCl 100 mg Capsule PO SCH ×2 (09:42→20:54)
[2022-03-24] MEDS: Lansoprazole 15 MG/5 ML (BATCHED)UDCUP PER TUBE SCH (09:42)
[2022-03-24] MEDS: Polyethylene Glycol 3350 17 GM Packet PO SCH (09:43)
[2022-03-24] MEDS: Amlodipine 5 MG TAB PO SCH (09:43)
[2022-03-24] MEDS: Saccharomyces boulardii 250 MG CAP PER TUBE SCH (09:43)
[2022-03-24] MEDS: Atorvastatin Calcium 40 MG TAB PO SCH (09:44)
[2022-03-24] MEDS: cefTRIAXone\\ROCEPHIN 2 GM in Sodium Chloride 0.9% 100 ML IVPB SCH (09:44)
[2022-03-24] MEDS ORDERED: Furosemide 20 MG/2 ML VIAL SLOW IVP SCH (11:45)
[2022-03-25] MEDS: Acetaminophen 650 MG/20.3 ML UDCUP PO SCH ×2 (01:36→06:40)
[2022-03-25 06:27] LABS: Anion Gap 14 mmol/L (10-20); BUN (Urea Nitrogen) 15 mg/dL (9.8-20.1); Calc. Creatinine Clearance 95 mL/min (70-130); Calcium 8.7 mg/dL (7.8-10.44); Carbon Dioxide 17 mmol/L (23-31); Chloride 115 mmol/L (98-107); Estimated GFR 97; Glucose 121 mg/dL (83-110); Magnesium 1.9 mg/dL (1.6-2.6); Potassium 4.2 mmol/L (3.5-5.1); Sodium 142 mmol/L (136-145)
[2022-03-25] MEDS: Amantadine HCl 100 mg Capsule PO SCH ×2 (08:54→20:42)
[2022-03-25] MEDS: Atorvastatin Calcium 40 MG TAB PO SCH (08:54)
[2022-03-25] MEDS: Amlodipine 5 MG TAB PO SCH (08:54)
[2022-03-25] MEDS: Saccharomyces boulardii 250 MG CAP PER TUBE SCH (08:55)
[2022-03-25] MEDS: Polyethylene Glycol 3350 17 GM Packet PO SCH (08:56)
[2022-03-25] MEDS: cefTRIAXone\\ROCEPHIN 2 GM in Sodium Chloride 0.9% 100 ML IVPB SCH (08:56)
[2022-03-25] MEDS: Lansoprazole 15 MG/5 ML (BATCHED)UDCUP PER TUBE SCH (09:57)
[2022-03-25] MEDS: hydrALAZINE 20 MG/ML VIAL SLOW IVP PRN (12:17)
[2022-03-25] MEDS: Acetaminophen 325 MG/10.15 ML UDCUP PO SCH ×2 (12:31→17:33)
[2022-03-26] MEDS: hydrALAZINE 20 MG/ML VIAL SLOW IVP PRN ×3 (00:10→20:07)
[2022-03-26] MEDS: Acetaminophen 325 MG/10.15 ML UDCUP PO SCH ×4 (01:13→17:12)
[2022-03-26 08:06] LABS: Anion Gap 12 mmol/L (10-20); BUN (Urea Nitrogen) 16 mg/dL (9.8-20.1); Calc. Creatinine Clearance 97 mL/min (70-130); Calcium 9.1 mg/dL (7.8-10.44); Carbon Dioxide 24 mmol/L (23-31); Chloride 110 mmol/L (98-107); Estimated GFR 97; Glucose 142 mg/dL (83-110); Magnesium 1.7 mg/dL (1.6-2.6); Phosphorus 3.3 mg/dL (2.3-4.7); Potassium 3.8 mmol/L (3.5-5.1); Sodium 142 mmol/L (136-145)
[2022-03-26] MEDS: Saccharomyces boulardii 250 MG CAP PER TUBE SCH (09:10)
[2022-03-26] MEDS: Polyethylene Glycol 3350 17 GM Packet PO SCH (09:10)
[2022-03-26] MEDS: Atorvastatin Calcium 40 MG TAB PO SCH (09:10)
[2022-03-26] MEDS: Amantadine HCl 100 mg Capsule PO SCH ×2 (09:10→20:07)
[2022-03-26] MEDS: Lansoprazole 15 MG/5 ML (BATCHED)UDCUP PER TUBE SCH (09:10)
[2022-03-26] MEDS: Amlodipine 5 MG TAB PO SCH (09:11)
[2022-03-26] MEDS ORDERED: Magnesium 2 GM/50 ML(in water) 4 GM in Premix Bag 1 BAG IVPB SCH (10:00)
[2022-03-26] MEDS ORDERED: Magnesium Sulfate In Water 4 GM in Premix Bag 1 BAG IVPB SCH (10:00)
[2022-03-27] MEDS: Acetaminophen 325 MG/10.15 ML UDCUP PO SCH ×4 (02:35→16:50)
[2022-03-27] MEDS: Atorvastatin Calcium 40 MG TAB PO SCH (09:18)
[2022-03-27] MEDS: Amantadine HCl 100 mg Capsule PO SCH ×2 (09:18→20:17)
[2022-03-27] MEDS: Lansoprazole 15 MG/5 ML (BATCHED)UDCUP PER TUBE SCH (09:18)
[2022-03-27] MEDS: Polyethylene Glycol 3350 17 GM Packet PO SCH (09:18)
[2022-03-27] MEDS: Saccharomyces boulardii 250 MG CAP PER TUBE SCH (09:19)
[2022-03-27] MEDS: Amlodipine 5 MG TAB PO SCH (09:19)
[2022-03-28] MEDS: Acetaminophen 325 MG/10.15 ML UDCUP PO SCH ×5 (00:02→23:22)
[2022-03-28 04:26] LABS: #Eosinphils 0.2 thou/uL (0.0-0.7); #Lymphocytes 1.6 thou/uL (1.20-3.40); #Monocytes 0.9 thou/uL (0.11-0.59); #Neutrophils 14.7 thou/uL (1.40-6.50); %Basophils 0.2 % (0.0-1.0); %Eosinophils 1.4 % (0.0-10.0); %Lymphocytes 9.1 % (21.0-51.0); %Monocytes 5.2 % (0.0-10.0); %Neutrophils 84.1 % (42.0-75.0); Hemoglobin 10.1 g/dL (12.0-16.0); Mean Corpuscular HGB CONC 32.4 g/dL (32.0-36.0); Mean Corpuscular Hemoglobin 32.2 pg (27.0-31.0); Mean Corpuscular Volume 99.3 fL (78.0-98.0); Mean Platelet Volume 7.9 fL (7.4-10.4); Platelet Count 288 thou/uL (130-400); RBC Distribution Width 13.2 % (11.5-14.5); Red Blood Cell (RBC) Count 3.14 mill/uL (4.20-5.40); White Blood Cell (WBC) Count 17.5 thou/uL (4.8-10.8)
[2022-03-28 04:48] LABS: Anion Gap 10 mmol/L (10-20); BUN (Urea Nitrogen) 19 mg/dL (9.8-20.1); Calc. Creatinine Clearance 97 mL/min (70-130); Calcium 8.6 mg/dL (7.8-10.44); Carbon Dioxide 27 mmol/L (23-31); Chloride 109 mmol/L (98-107); Estimated GFR 97; Glucose 126 mg/dL (83-110); Magnesium 1.7 mg/dL (1.6-2.6); Phosphorus 3.5 mg/dL (2.3-4.7); Potassium 4.3 mmol/L (3.5-5.1); Sodium 142 mmol/L (136-145)
[2022-03-28] MEDS ORDERED: Piperacillin/Tazobactam 3.375 GM in Sodium Chloride 0.9% 100 ML IVPB SCH (08:30)
[2022-03-28] MEDS: Atorvastatin Calcium 40 MG TAB PO SCH (08:55)
[2022-03-28] MEDS: Amantadine HCl 100 mg Capsule PO SCH ×2 (08:55→20:46)
[2022-03-28] MEDS: Saccharomyces boulardii 250 MG CAP PER TUBE SCH (08:56)
[2022-03-28] MEDS: Furosemide 20 MG/2 ML VIAL SLOW IVP SCH (08:56)
[2022-03-28] MEDS: Polyethylene Glycol 3350 17 GM Packet PO SCH (08:56)
[2022-03-28] MEDS: Amlodipine 5 MG TAB PO SCH (08:58)
[2022-03-28] MEDS: Lansoprazole 15 MG/5 ML (BATCHED)UDCUP PER TUBE SCH (08:58)
[2022-03-28] MEDS ORDERED: Scopolamine 1.5 mg/72 hour Patch TD SCH (09:15)
[2022-03-28 11:22] VITALS: BMI 24.4
[2022-03-28] MEDS: Piperacillin/Tazobactam 3.375 GM in Sodium Chloride 0.9% 100 ML IVPB SCH ×2 (12:09→20:45)
[2022-03-29] MEDS: Piperacillin/Tazobactam 3.375 GM in Sodium Chloride 0.9% 100 ML IVPB SCH ×2 (04:37→12:36)
[2022-03-29 04:43] LABS: #Eosinphils 0.1 thou/uL (0.0-0.7); #Monocytes 1.1 thou/uL (0.11-0.59); #Neutrophils 15.3 thou/uL (1.40-6.50); %Basophils 0.2 % (0.0-1.0); %Eosinophils 0.5 % (0.0-10.0); %Lymphocytes 5.4 % (21.0-51.0); %Neutrophils 87.9 % (42.0-75.0); Hemoglobin 9.3 g/dL (12.0-16.0); Mean Corpuscular HGB CONC 31.7 g/dL (32.0-36.0); Mean Corpuscular Hemoglobin 31.5 pg (27.0-31.0); Mean Corpuscular Volume 99.3 fl (78.0-98.0); Mean Platelet Volume 7.7 fL (7.4-10.4); Platelet Count 264 thou/uL (130-400); RBC Distribution Width 12.8 % (11.5-14.5); Red Blood Cell (RBC) Count 2.96 mill/uL (4.20-5.40); White Blood Cell (WBC) Count 17.4 thou/uL (4.8-10.8)
[2022-03-29] MEDS: Acetaminophen 325 MG/10.15 ML UDCUP PO SCH ×3 (04:59→18:04)
[2022-03-29 05:09] LABS: Anion Gap 10 mmol/L (10-20); BUN (Urea Nitrogen) 17 mg/dL (9.8-20.1); Calc. Creatinine Clearance 94 mL/min (70-130); Calcium 8.5 mg/dL (7.8-10.44); Carbon Dioxide 27 mmol/L (23-31); Chloride 106 mmol/L (98-107); Estimated GFR 95; Glucose 142 mg/dL (83-110); Magnesium 1.6 mg/dL (1.6-2.6); Phosphorus 3.3 mg/dL (2.3-4.7); Potassium 3.7 mmol/L (3.5-5.1); Sodium 139 mmol/L (136-145)
[2022-03-29] MEDS ORDERED: Magnesium 2 GM/50 ML(in water) 4 GM in Premix Bag 1 BAG IVPB SCH (07:15)
[2022-03-29] MEDS ORDERED: Potassium Phosphate 30 MMOL, Magnesium Sulfate 4 GM in Sodium Chloride 0.9% 250 ML 250 ML IVPB SCH (07:30)
[2022-03-29] MEDS: Amantadine HCl 100 mg Capsule PO SCH (09:47)
[2022-03-29] MEDS: Atorvastatin Calcium 40 MG TAB PO SCH (09:47)
[2022-03-29] MEDS: Lansoprazole 15 MG/5 ML (BATCHED)UDCUP PER TUBE SCH (09:48)
[2022-03-29] MEDS: Furosemide 20 MG/2 ML VIAL SLOW IVP SCH (09:48)
[2022-03-29] MEDS: Saccharomyces boulardii 250 MG CAP PER TUBE SCH (09:48)
[2022-03-29] MEDS: Amlodipine 5 MG TAB PO SCH (09:48)
[2022-03-29] MEDS: Polyethylene Glycol 3350 17 GM Packet PO SCH (09:48)
[2022-03-29 11:00] VITALS: BP 103/56
[2022-03-29 16:39] VITALS: TEMP 98
== END 2022-03-29 19:45 | DRG 3 ==
LOC: ERS 19:21 → CCU 22:29
PROVIDERS: ADMIT Specialist; ATTEND Surgery
PROC: 00C40ZZ Extirpation of Matter from Intracranial Subdural Space, Open Approach (ICD-10-PCS; principal; 2022-03-14)
PROC: 5A1955Z Respiratory Ventilation, Greater than 96 Consecutive Hours (ICD-10-PCS; 2022-03-14)
PROC: 3E033XZ Introduction of Vasopressor into Peripheral Vein, Percutaneous Approach (ICD-10-PCS; 2022-03-14)
PROC: 0D9670Z Drainage of Stomach with Drainage Device, Via Natural or Artificial Opening (ICD-10-PCS; 2022-03-14)
PROC: 3E0G76Z Introduction of Nutritional Substance into Upper GI, Via Natural or Artificial Opening (ICD-10-PCS; 2022-03-14)
PROC: 0BH17EZ Insertion of Endotracheal Airway into Trachea, Via Natural or Artificial Opening (ICD-10-PCS; 2022-03-14)
PROC: 02HV33Z Insertion of Infusion Device into Superior Vena Cava, Percutaneous Approach (ICD-10-PCS; 2022-03-14)
PROC: 0B113F4 Bypass Trachea to Cutaneous with Tracheostomy Device, Percutaneous Approach (ICD-10-PCS; 2022-03-20)
PROC: 0DH63UZ Insertion of Feeding Device into Stomach, Percutaneous Approach (ICD-10-PCS; 2022-03-20)
DX: S06.5XAA Traumatic subdural hemorrhage with loss of consciousness status unknown, initial encounter (principal); Z20.822 Contact with and (suspected) exposure to COVID-19; J96.01 Acute respiratory failure with hypoxia; S06.A1XA Traumatic brain compression with herniation, initial encounter; I21.4 Non-ST elevation (NSTEMI) myocardial infarction; J90 Pleural effusion, not elsewhere classified; D62 Acute posthemorrhagic anemia; E27.40 Unspecified adrenocortical insufficiency; E87.0 Hyperosmolality and hypernatremia; R78.81 Bacteremia; T79.6XXA Traumatic ischemia of muscle, initial encounter; E03.9 Hypothyroidism, unspecified; M19.90 Unspecified osteoarthritis, unspecified site; J44.9 Chronic obstructive pulmonary disease, unspecified; I25.10 Atherosclerotic heart disease of native coronary artery without angina pectoris; Z60.2 Problems related to living alone; S05.11XA Contusion of eyeball and orbital tissues, right eye, initial encounter; S06.1XAA Traumatic cerebral edema with loss of consciousness status unknown, initial encounter; E11.51 Type 2 diabetes mellitus with diabetic peripheral angiopathy without gangrene; W18.30XA Fall on same level, unspecified, initial encounter; R40.2112 Coma scale, eyes open, never, at arrival to emergency department; R40.2332 Coma scale, best motor response, abnormal flexion, at arrival to emergency department; R40.2212 Coma scale, best verbal response, none, at arrival to emergency department; B96.89 Other specified bacterial agents as the cause of diseases classified elsewhere; B96.1 Klebsiella pneumoniae [K. pneumoniae] as the cause of diseases classified elsewhere; B95.61 Methicillin susceptible Staphylococcus aureus infection as the cause of diseases classified elsewhere; E87.6 Hypokalemia; E83.42 Hypomagnesemia; E83.39 Other disorders of phosphorus metabolism; Z78.1 Physical restraint status; Z28.21 Immunization not carried out because of patient refusal; Z85.038 Personal history of other malignant neoplasm of large intestine; Z85.118 Personal history of other malignant neoplasm of bronchus and lung; Z79.899 Other long term (current) drug therapy; Z79.01 Long term (current) use of anticoagulants; Z79.82 Long term (current) use of aspirin; Z79.02 Long term (current) use of antithrombotics/antiplatelets; Z90.49 Acquired absence of other specified parts of digestive tract; Z90.2 Acquired absence of lung [part of]; I25.2 Old myocardial infarction; Z87.891 Personal history of nicotine dependence
CPT/HCPCS: 31500; 36415; 36416; 36556; 36600; 51702; 70450; 70486; 71045; 72125; 80048; 80053; 80306; 80307; 81003; 81015; 82533; 82550; 82553; 82805; 83605; 83735; 83880; 84100; 84443; 84484; 85025; 85610; 85730; 86850; 86900; 86901; 87040; 87070; 87077; 87086; 87149; 87186; 87205; 87811; 93005; 93970; 94002; 94003; 94640; 95816; 95819; 95957; 96365; 96366; 96367; 96368; 96375; C1713; C1876; C9113; G0390; J0171; J0360; J0690; J0692; J0696; J1100; J1720; J1815; J1940; J2001; J2250; J2310; J2370; J2405; J2543; J2704; J2765; J3010; J3370; J3475; J3480; J3490; J7030; J7050; J7168; J7620; P9045